=== PATIENT | male | born 1955 | race Caucasian/White ===

== ENCOUNTER 2020-07-02 08:20 | Inpatient (IN) ==
--- NOTE | 2020-06-17 12:55 | PAT Medication Instructions ---
Medication Instructions Date of Service June 17, 2020 Home Medications aspirin 325 mg PO QAM carvedilol phosphate 10 mg PO QAM cetirizine [Zyrtec] 10 mg PO QAM glimepiride 1 mg PO QAM khprhlsewbj-gzw-xtdxuxvgv-vitC [Glucosamine Complex-MSM] 1 cap PO PM insulin degludec [Tresiba FlexTouch U-100] 130 unit SUBCUT QAM liraglutide [Victoza 3-Francisco J] 1.8 mg SUBCUT QAM losartan-hydrochlorothiazide 1 tab PO QAM metformin 1,000 mg PO BID omega-3 fatty acids-vitamin E [Fish Oil] 1 cap PO PM simvastatin 10 mg PO HS tadalafil 5 mg PO DAILY PRN vitamin A-vitamin C-vit E-min [Ocuvite] 1 tab PO QAM ASK your prescriber and surgeon aspirin 325 mg PO QAM STOP taking 2 weeks before surgery (or as soon as possible if surgery is within 2 weeks) omega-3 fatty acids-vitamin E [Fish Oil] 1 cap PO PMN Ocuvite] 1 tab PO QAM drachfeufzi-kps-lnmthpzux-vitC [Glucosamine Complex-MSM] 1 cap PO PM DO NOT take the morning of surgery cetirizine [Zyrtec] 10 mg PO QAM glimepiride 1 mg PO QAM losartan-hydrochlorothiazide 1 tab PO QAM metformin 1,000 mg PO BID tadalafil 5 mg PO DAILY PRN Take morning of surgery With a small sip of water, OTHERWISE NOTHING TO EAT OR DRINK AFTER MIDNIGHT: carvedilol phosphate 10 mg PO QAM liraglutide [Victoza 3-Francisco J] 1.8 mg SUBCUT QAM Take evening before surgery metformin 1,000 mg PO BID simvastatin 10 mg PO HS tadalafil 5 mg PO DAILY PRN (if needed) Insulin Dependent Diabetic Patients * Test your blood sugar the morning of surgery * If Blood Sugar is GREATER THAN 150, take HALF of your regular dose of: insulin degludec [Tresiba FlexTouch U-100] take 65 units * If Blood Sugar is LESS THAN 150, DO NOT TAKE ANY: insulin degludec [Tresiba FlexTouch U-100] Other Notes If you have any questions please call us at [phone] or [phone] or [phone] or [phone]
--- NOTE | 2020-06-18 12:41 | Anesthesiology Consultation ---
Date of Service June 18, 2020 Assessment & Plan (1) Encounter for pre-operative examination: COVID Status: As of 06/18 assessment, patient denies travel to endemic area, known exposure/sick contacts, or symptoms of COVID19. Patient instructed that they and their household members must follow strict social distancing guidelines, wear a mask in public and avoid travel for 14 days prior to surgery. Preoperative COVID19 testing to be completed prior to surgery per surgeon's arra ngements. Patient made aware to self-isolate as much as possible between COVID testing and surgery. Significant hyperglycemia on pre-op labs (255). Patient with known DM. Labs sent to PCP for review for pre-op clearance. Chart Review Chart Review: Acceptable Risk for Surgery (pending PCP clearance 06/22) and Patient seen in Pre Admission Testing Teaching & Discussion Instructed NPO after midnight before surgery, except medications with 15 cc of water. Medication instructions provided according to the PAT guidelines. History Surgery Operation Date: 07/02/20 09:20 Proposed Procedures p L3-L4 Decompression and Fusion, L4-S1 Hardware Removal, Spinal Cord Monitoring - Sammy Joseph, Height/Weight Height: 5 ft 10 in Weight: 103.1 kg Allergies Allergy/AdvReac Type Severity Reaction Status Date / Time cephalexin Allergy Unknown HIVES Unverified 06/15/20 15:03 Medications Home Medications Medication Instructions Recorded Confirmed Last Taken aspirin 325 mg PO QAM 06/15/20 06/15/20 Unknown carvedilol phosphate 10 mg PO QAM 06/15/20 06/15/20 Unknown cetirizine [Zyrtec] 10 mg PO QAM 06/15/20 06/15/20 Unknown glimepiride 1 mg PO QAM 06/15/20 06/15/20 Unknown outkhjtwwib-rax-earjpebmd-vitC 1 cap PO PM 06/15/20 06/15/20 Unknown [Glucosamine Complex-MSM] insulin degludec [Tresiba 130 unit SUBCUT QAM 06/15/20 06/15/20 Unknown FlexTouch U-100] liraglutide [Victoza 3-Francisco J] 1.8 mg SUBCUT QAM 06/15/20 06/15/20 Unknown losartan-hydrochlorothiazide 1 tab PO QAM 06/15/20 06/15/20 Unknown metformin 1,000 mg PO BID 06/15/20 06/15/20 Unknown omega-3 fatty acids-vitamin E 1 cap PO PM 06/15/20 06/15/20 Unknown [Fish Oil] simvastatin 10 mg PO HS 06/15/20 06/15/20 Unknown tadalafil 5 mg PO DAILY PRN 06/15/20 06/15/20 Unknown vitamin A-vitamin C-vit E-min 1 tab PO QAM 06/15/20 06/15/20 Unknown [Ocuvite] Past Medical History Medical History BPH (benign prostatic hyperplasia) Chronic back pain Degenerative disc disease Diabetes mellitus, type 2 Hyperlipidemia Hypertension Sleep apnea cpap, pt reports compliance Exercise / Class Metabolic Activity II 4-5 Yardwork/Stairs/Walk up hill Past Surgical History Surgical History History of arthroscopy RIGHT SHOULDER History of arthroscopy RIGHT KNEE History of back surgery below L4 CAGE AND HARDWARE History of carpal tunnel release BILAT History of colonoscopy History of esophagogastroduodenoscopy (EGD) History of repair of ACL LEFT History of tonsillectomy History of tooth extraction Hx of elbow surgery RIGHT ULNAR NERVE Past Anesthesia History No Hx of Anesthesia Complications and No Family Hx of Anesthesia Complications History of PONV No Hx of PONV and No Hx of Motion Sickness Social History Smoking Status: Never smoker Do You Dip or Chew Tobacco: Yes (1 CAN PER 4 DAYS, ADVISED NONE AM DOS) Hx Alcohol Use: Yes Alcohol type: beer alcohol intake frequency: holidays/special occasions only Hx Substance Use: No substance use type: does not use Review of Systems Pt denies any recent chest pain, shortness of breath, palpitations, cough, fever, URI, or uncontrolled acid reflux. Physical Exam Vital Signs BP: 116/67 P: 88bpm SPO2: 96% RA T: 98.3 F R: 16 ENMT Mouth: no dental restorations, no chipped teeth and no loose teeth Thyromental Distance: > or= 3.5 Finger Breadths Mallampati Class: III Neck + short neck and + facial hair (short goatee); neck extension not limited Respiratory normal respiratory effort Auscultation: lungs clear to auscultation bilaterally Cardiovascular Rate/Rhythm: regular rate and regular rhythm Heart Sounds: no murmur Extremities: no edema Testing Laboratory Results 06/18/20 12:55 06/18/20 12:55 PT 11.8 Seconds (9.0-12.0) 06/18/20 12:55 INR 1.1 (0.9-1.1) 06/18/20 12:55 APTT 26.0 Seconds (21.0-31.0) 06/18/20 12:55 Urine Color Yellow 06/18/20 Unknown Urine Appearance Clear (Clear) 06/18/20 Unknown Urine pH 5.0 (4.5-7.5) 06/18/20 Unknown Ur Specific [place] 1.018 (1.000-1.030) 06/18/20 Unknown Urine Protein Negative (Negative) 06/18/20 Unknown Urine Glucose (UA) Trace (Negative) H 06/18/20 Unknown Urine Ketones Trace (Negative) H 06/18/20 Unknown Urine Nitrite Negative (Negative) 06/18/20 Unknown Ur Leukocyte Esterase Negative (Negative) 06/18/20 Unknown Blood Type A Negative 06/18/20 12:55 Antibody Screen NEGATIVE 06/18/20 12:55 *Surgeon's office flagged re: elevated glucose. Electrocardiogram Date: 06/18/20 Findings: + NSR @ (88bpm) and + RBBB Chest X-Ray Date: 06/18/20 Findings: + NAD
[2020-06-18 13:34] LABS: Basophils # (auto) 0.04 K/uL (0-0.2); Basophils % (auto) 0.7 %; Eosinophils # (auto) 0.33 K/uL (0-0.5); Eosinophils % (auto) 5.7 %; Hematocrit (blood only) 39.9 % (42-52); Hemoglobin 14.2 g/dL (14.0-18.0); Immature Granulocytes # (auto) 0.01 K/uL (0.00-0.02); Immature Granulocytes % (auto) 0.2 %; Lymphocytes # (auto) 1.51 K/uL (1.2-3.4); Lymphocytes % (auto) 25.9 %; Mean Corpuscular Hemoglobin 30.7 pg (25-34); Mean Corpuscular Hgb Conc 35.6 g/dL (32-36); Mean Corpuscular Volume 86.4 fL (80-100); Mean Platelet Volume 10.7 fL (7.4-10.4); Monocytes # (auto) 0.46 K/uL (0.11-0.59); Monocytes % (auto) 7.9 %; Neutrophils # (auto) 3.47 K/uL (1.4-6.5); Neutrophils % (auto) 59.6 %; Platelet Count 164 K/uL (130-400); RDW Coefficient of Variation 13.4 % (11.5-14.5); RDW Standard Deviation 42.1 fL (36.4-46.3); Red Blood Count 4.62 M/uL (4.7-6.1); White Blood Count 5.82 K/uL (4.8-10.8)
[2020-06-18 13:36] LABS: Appearance Urine Clear (Clear); Bilirubin Urine Negative (Negative); Blood Urine Negative (Negative); Color Urine Yellow; Glucose Urine UA Trace (Negative); Ketones Urine Trace (Negative); Leukocyte Esterase Urine Negative (Negative); Nitrite Urine Negative (Negative); Protein Urine Negative (Negative); Specific Gravity Urine 1.018 (1.000-1.030); Urobilinogen Urine Negative (Negative)
--- NOTE | 2020-06-18 13:41 | XRay Report ---
TWO VIEW CHEST CLINICAL HISTORY: Preoperative examination. FINDINGS: PA and lateral chest radiographs are compared to study dated 03/01/2016. The cardiomediastin al silhouette is unremarkable. The lungs and pleural spaces are clear. Bilateral nipple shadows are noted. There is no pneumothorax. The bony thorax appears intact. IMPRESSION: No active disease in the chest. ACT 112: Negative or not required by law. Electronically signed by: Javon Pineda M.D. 06/18/2020 1:39 PM
[2020-06-18 13:44] LABS: INR 1.1 (0.9-1.1); Partial Thromboplastin Ratio 0.9; Prothrombin Time 11.8 Seconds (9.0-12.0)
[2020-06-18 13:46] LABS: BUN Creatinine Ratio 23.1 (10-20); Calcium 9.4 mg/dl (8.5-10.1); Creatinine Clr Calc Pharmacy 82.8 ml/min; Est GFR (Non-African American) 72.5; Potassium 4.2 mmol/L (3.5-5.1)
--- NOTE | 2020-06-18 13:55 | Electrocardiogram Report ---
Test Reason : Blood Pressure : / mmHG Vent. Rate : 088 BPM Atrial Rate : 088 BPM P-R Int : 160 ms QRS Dur : 156 ms QT Int : 382 ms P-R-T Axes : 070 084 046 degrees QTc Int : 462 ms Normal sinus rhythm Right bundle branch block Abnormal ECG When compared with ECG of 02-JUN-2006 15:47, Right bundle branch block is now Present Confirmed by Grady Vazquez ([id number]) on 06/18/2020 1:55:05 PM Referred By: Sammy Joseph Confirmed By:Grady Vazquez
[~2020-07-02 08:20] MED LIST: ACETAMINOPHEN 500 MG TAB PO SCH; CLINDAMYCIN 600 MG/54 ML BAG IV SCH; CeleBREX 200 MG CAP PO SCH; GABAPENTIN 300 MG CAP PO SCH; LR 15ML/HR IV SCH; ceFAZolin 2000MG 2,000 MG/15 ML SYR IV SCH
--- NOTE | 2020-07-02 09:09 | History & Physical Bridge Note ---
Date of Service July 02, 2020 History & Physical Bridge Note I have examined the patient, reviewed the History & Physical and in the interval since the performance of the History & Physical I have noted the following changes of clinical significance: no changes noted
--- NOTE | 2020-07-02 09:12 | History & Physical Report ---
Date of Service July 02, 2020 Assessment & Plan (1) Lumbar stenosis with neurogenic claudication: Admission and Anticipated Discharge Date Admission Date: L3-L4 decompression fusion, L4-S1 hardware removal History of Present Illness Chief Complaint: Back and leg pain Primary Care Provider: Rj Mansfield MD This is 65-year-old male well-known to the presents with worsening back and leg pain. After failing course of nonoperative care is here for surgical intervention. Allergies Allergy/AdvReac Type Severity Reaction Status Date / Time cephalexin Allergy Unknown HIVES Unverified 07/02/20 08:56 Home Medications Home Medications Medication Instructions Recorded Confirmed Type aspirin 325 mg PO QAM 06/15/20 06/15/20 History carvedilol phosphate 10 mg PO QAM 06/15/20 06/15/20 History cetirizine [Zyrtec] 10 mg PO QAM 06/15/20 06/15/20 History glimepiride 1 mg PO QAM 06/15/20 06/15/20 History ptiwjjjrnlm-xqd-qdtkyqnyi-vitC 1 cap PO PM 06/15/20 06/15/20 History [Glucosamine Complex-MSM] insulin degludec [Tresiba 130 unit SUBCUT QAM 06/15/20 06/15/20 History FlexTouch U-100] liraglutide [Victoza 3-Francisco J] 1.8 mg SUBCUT QAM 06/15/20 06/15/20 History losartan-hydrochlorothiazide 1 tab PO QAM 06/15/20 06/15/20 History metformin 1,000 mg PO BID 06/15/20 06/15/20 History omega-3 fatty acids-vitamin E 1 cap PO PM 06/15/20 06/15/20 History [Fish Oil] simvastatin 10 mg PO HS 06/15/20 06/15/20 History tadalafil 5 mg PO DAILY PRN 06/15/20 06/15/20 History vitamin A-vitamin C-vit E-min 1 tab PO QAM 06/15/20 06/15/20 History [Ocuvite] Past Med/Surg History Medical History BPH (benign prostatic hyperplasia) Chronic back pain Degenerative disc disease Diabetes mellitus, type 2 Hyperlipidemia Hypertension Sleep apnea cpap, pt reports compliance Surgical History History of arthroscopy RIGHT SHOULDER History of arthroscopy RIGHT KNEE History of back surgery below L4 CAGE AND HARDWARE History of carpal tunnel release BILAT History of colonoscopy History of esophagogastroduodenoscopy (EGD) History of repair of ACL LEFT History of tonsillectomy History of tooth extraction Hx of elbow surgery RIGHT ULNAR NERVE Social History Smoking Status: Never smoker Second Hand Exposure: No; Do You Dip or Chew Tobacco: Yes (1 CAN PER 4 DAYS, ADVISED NONE AM DOS); Tobacco Cessation Education Requested by Patient: No Hx Alcohol Use: Yes Alcohol type: beer Hx Substance Use: No Preferred Language: Ecuadorean Communication Ability: Effective Precision Dyer Required: No Beliefs That Will Affect Care: None Current Living Situation: Spouse Other Information That Helps Us Care for You: No Feels Safe at Home: Yes Safety Concerns: Feels Safe At This Time Physical Exam Physical Exam: Patient alert and oriented neurologically intact. Heart regular rate and rhythm. Lungs clear to auscultation.
[2020-07-02] MEDS ORDERED: ONDANSETRON INJ 2 MG/ML 2 ML VIAL IV PRN ×2 (09:17→13:12)
[2020-07-02] MEDS ORDERED: ePHEDrine sulfate 50 MG/ML AMP IV PRN (09:17)
[2020-07-02] MEDS ORDERED: CLINDAMYCIN 600 MG/54 ML D5W IV ONE (09:17)
[2020-07-02] MEDS ORDERED: fentaNYL citrate 100 MCG/2 ML VIAL IV PRN (09:17)
[2020-07-02] MEDS ORDERED: ATROPINE SULFATE 0.1 MG/ML 10ML SYR IV PRN (09:17)
[2020-07-02] MEDS ORDERED: HYDROmorphone INJ 1 MG/ML SYRINGE IV PRN ×2 (09:17→13:12)
[2020-07-02] MEDS ORDERED: ONDANSETRON INJ 2 MG/ML 2 ML VIAL ONE (09:22)
[2020-07-02] MEDS ORDERED: LIDOCAINE HCL 2% 2 ML VIAL/AMP(20MG/ML) INFIL ONE (09:22)
[2020-07-02] MEDS ORDERED: MIDAZOLAM HCL 1 MG/ML 2ML VIAL ONE (09:22)
[2020-07-02] MEDS ORDERED: ROCURONIUM BROMIDE 10 MG/ML 5 ML VIAL IV ONE (09:22)
[2020-07-02] MEDS ORDERED: PROPOFOL IV EMULSION 10 MG/ML 20 ML VIAL IV ONE (09:22)
[2020-07-02] MEDS ORDERED: fentaNYL citrate 100 MCG/2 ML VIAL ONE ×2 (09:22→09:23)
[2020-07-02] MEDS ORDERED: BACITRACIN INJ 50,000 UNIT VIAL ONE (09:23)
[2020-07-02] MEDS ORDERED: EPINEPHrine INJ 1 MG/ML AMP ONE (09:23)
[2020-07-02] MEDS ORDERED: BUPIVACAINE 0.5 % 5 MG/1 ML MPF 30ML VIAL ONE (09:23)
[2020-07-02] MEDS ORDERED: FLOSEAL HEMOSTATIC MATRIX 10ML TOP ONE (10:24)
--- NOTE | 2020-07-02 11:47 | Operative Report ---
Post Operative Report Pre & Post Diagnosis Operation Date: 07/02/20 09:55 Pre-Op Diagnosis: Spinal Stenosis, Lumbar Region with Neurogenic Claudication Post-Op Diagnosis: Spinal Stenosis, Lumbar Region with Neurogenic Claudication I identified the patient and participated in the time-out.: Yes Procedure Operation Date: 07/02/20 09:55 Actual Procedures #1 removal of posterior instrumentation L4-5 and L5-S1. #2 exploration of fusion L4-5 L5-S1. #3 lumbar decompression with bilateral medial facetectomies and foraminotomies L2-3 and L3-4. #4 posterior spinal fusion L3-4. #5 placement posterior instrumentation L3-4 per #6 interbody fusion L3-4 per #7 placement of peek cage 12 x 26 mm at L3-4. #8 placement of locally harvested morselized autograft in the posterior lateral gutters. #9 placement infuse collagen sponge, master graft in the posterior lateral gutters and ostial amp interbody space. Surgeon Sammy Joseph, Thoracic Medicine Physician Yolanda Doe Estimated Blood Loss 250 Findings See Below Patient is 5 foot 10 inches tall weighing over 102 kg with a BMI in excess of 32. The patient's body habitus did add increased significant technical difficulty requiring her deepest retractors longus instruments in order to perform his procedure. This did at least 25% increase to the operative time. Specimens None Indications This is a 65-year-old male well-known to me the presents with marked decline in status. He has severe spinal stenosis and here for surgical intervention. Description of Procedure Patient was met with identified informed consent obtained. Patient was then taken to the operative suite underwent intubation placed in a prone position on the Luis Antonio table on top of the Graham frame. All bony prominences well-padded eyes inspected to ensure no external pressure placed upon them. This point the lumbar spine was prepped and draped in a normal sterile fashion. Sharp dissection with the assistance of Bovie cautery was performed down to and exposing the lamina and transverse processes of L3 and instrumentation at L4-L5 and S1 levels bilaterally. Then proceeded to move the hardware bilaterally explore the fusion mass noting to be mature and intact. Informed complete laminectomy of L3 partial laminectomy of L2 including bilateral medial facetectomies and foraminotomies addressing severe spinal stenosis. Pedicle screws were then placed in L3 and L4 bilaterally with assistance of fluoroscopy and the proper sized mirna placed. Believe a transforaminal approach on the right complete discectomy was performed endplates curetted to subcortical bleeding bone and a 12 x 26 mm peek cage filled with osteo-bone graft tapped in position. The rods were then locked in final position bilaterally. The transverse processes of L3 and L4. To subcortical bleeding bone. Infuse collagen sponge master graft local autograft was then placed in the posterior lateral gutters. 15 round CARMINE drain inserted. The incision was then closed with 1 Vicryl in the fascia 2-0 Vicryl subcutaneously and 4 Monocryl for final skin closure. Steri- Strip sterile dressings placed. Patient will continue PACU stable condition. Please note spinal cord monitoring was last that the procedure no changes noted. Lastly Yolanda Doe was present at the entire surgery involved the patient positioning complex portions of the surgery and final skin closure. I attest to the content of the Intraoperative Record and any orders documented therein. Any exceptions are noted below.
--- NOTE | 2020-07-02 12:01 | Fluoroscopy Report ---
FL lumbar spine 2-3V CLINICAL HISTORY: L4-S1 REMOVE HARDWARE/L3-4 DECOMPRESSION/FUSION/INTERBODY COMPARISON STUDY: Lumbar spine radiographs March 2016. FLUOROSCOPY TIME: 9 seconds. FLUOROSCOPIC IMAGES: 2 FINDINGS: These images demonstrate a previous L4-L5 discectomy with interbody spacer placement. Previ ous hardware was removed. Interval L3-L4 discectomy with interbody spacer placement as noted. There a re bilateral pedicle screws at the L3 and L4 levels with posterior decompression. IMPRESSION: Fluoroscopy provided for interval L3-L4 discectomy, posterior decompression and bilatera l pedicle screw fusion. ACT 112: Negative or not required by law. Electronically signed by: Antonino Kirk M.D. 07/02/2020 12:00 PM
[2020-07-02] MEDS ORDERED: FAMOTIDINE 20 MG TAB PO PRN (13:12)
[2020-07-02] MEDS ORDERED: LORazepam 0.5 MG/1 ML VIAL IV PRN (13:12)
[2020-07-02] MEDS ORDERED: HYDROmorphone INJ 0.5 MG/0.5 ML SYR IV PRN (13:12)
[2020-07-02] MEDS ORDERED: DO NOT ADMINISTER PNEUMOCOCCAL VACCINE PRN (13:12)
[2020-07-02] MEDS ORDERED: ONDANSETRON 4 MG OD TAB PO PRN (13:12)
[2020-07-02] MEDS ORDERED: NALOXONE HCL 0.4 MG/1 ML VIAL/CARP IV PRN (13:12)
[2020-07-02] MEDS ORDERED: ACETAMINOPHEN 500 MG TAB PO PRN (13:12)
[2020-07-02] MEDS ORDERED: METOCLOPRAMIDE HCL INJ 5 MG/ML 2 ML VIAL IV PRN (13:12)
[2020-07-02] MEDS ORDERED: SOD PHOSPHATE/SOD BIPHOSPHATE ENEMA 132 ML BTL PR PRN (13:12)
[2020-07-02] MEDS ORDERED: DO NOT ADMINISTER FLU VACCINE PRN (13:12)
[2020-07-02] MEDS ORDERED: diphenhydrAMINE Capsule 25 MG CAP PO PRN (13:12)
[2020-07-02] MEDS ORDERED: ACETAMINOPHEN 1,000 MG/100 ML VIAL IV PRN (13:12)
[2020-07-02] MEDS ORDERED: bisacodyL 10 MG SUPP PR PRN (13:12)
[2020-07-02] MEDS ORDERED: hydrOXYzine HCl 25 MG TAB PO PRN (13:12)
[2020-07-02] MEDS ORDERED: oxyCODONE HCL IR 5 MG TAB (IMMEDIATE RELEASE) PO PRN (13:12)
[2020-07-02] MEDS ORDERED: PROMETHAZINE HCL 12.5 MG in SODIUM CHLORIDE 0.9% 50 ML IV PRN (13:12)
[2020-07-02] MEDS ORDERED: ALUMINUM/MAGNESIUM SUSP 30 ML UDC PO PRN (13:12)
[2020-07-02] MEDS ORDERED: MAGNESIUM HYDROXIDE SUSP 30 ML UDC PO PRN (13:12)
[2020-07-02] MEDS ORDERED: LORazepam 0.5 MG TAB PO PRN (13:12)
[2020-07-02] MEDS: SODIUM CHLORIDE 0.9% 1000ML 1,000 ML IV SCH ×2 (13:18→20:36)
[2020-07-02] MEDS ORDERED: PHARMACY GLYCEMIC MGMT CONSULT PRN (13:29)
[2020-07-02] MEDS ORDERED: GLUCOSE 10 TABS/TUBE PO PRN (13:30)
[2020-07-02] MEDS ORDERED: GLUCAGON FOR INJ 1 MG VIAL IM PRN (13:30)
[2020-07-02] MEDS ORDERED: GLUCOSE 40% GEL 15 GM TUBE PO PRN (13:30)
[2020-07-02] MEDS ORDERED: CARBOHYDRATES FOR HYPOGLYCEMIA PO PRN (13:30)
[2020-07-02] MEDS ORDERED: DEXTROSE 50% 50 ML SYRINGE IV PRN (13:30)
[2020-07-02] MEDS: INSULIN ASPART 100 UNITS/ML 3 ML PEN SC SCH ×3 (14:20→20:36)
--- NOTE | 2020-07-02 14:40 | Pharmacy Report ---
Glycemic Control Consultation - Date of Service July 02, 2020 - Scope Scope: Glycemic Pharmacist consulted for glycemic control and to write orders per [facility] inpatient glycemic control protocol. - Objective Weight: 102.193 kg Accuchecks BSG (last 24hrs): 07/02/20 07/02/20 07/02/20 08:59 12:14 13:19 POC Glucose 167 H 147 H 150 H - Recent Pertinent Medications Outpatient Anti-diabetic Regimen: * Tresiba 130 units SC qAM + Victoza 1.8 mg SC qAM + Metformin 1000 mg PO BIDM + Glimepiride 1 mg PO qAM * A1c = pending for tomorrow AM (patient self-reported last A1c < 7%) Risk Factors for Insulin Resistance: * Recent Surgery: * POD #0 s/p spinal decompression/fusion * Diet: * Clear Liquid - Assessment & Plan Assessment & Plan: ASSESSMENT: * 65 yo M admitted s/p spinal decompression/fusion. Pharmacy is consulted for inpatient glycemic management. Patient self reported good outpatient control of T2DM. Updated A1c is pending for tomorrow with AM labs. * Pre-operative BSG was elevated at 167 mg/dL. Post-operative BSG was 150 mg/dL. Patient was going to eat post-operatively. Will start Novolog based on a weight and stress of 2. * Prior to admission, patient took Victoza dose and half of home basal dose (65 units) this morning. Will provide another small dose of Lantus with dinner tonight to ensure patient receives 70-80% of home basal dose. Plan is to transition this basal dose to lunchtime tomorrow and then resume once daily basal regimen qAM on Monday. PLAN FOR INPATIENT GLYCEMIC CONTROL: * Holding outpatient oral diabetes medications * Basal insulin * Lantus 25-35 units SQ HS (see eMAR for further details) * Bolus insulin * NovoLog per scale ACHS or Q6hrs while NPO * Goal Range: Low 110 mg/dL - High 140 mg/dL * Correction Factor: 15 mg/dL/unit * Nutritional / Prandial insulin per carb ratio of 1 unit per 5 grams CHO co nsumed * Please note that the plan above was derived based on current level of insulin resistance and hospital stress. These recommendations are appropriate for inpatient admission only. Plan of care upon discharge will need to be reassessed to avoid potential outpatient hypo/hyperglycemia. Thank you.
--- NOTE | 2020-07-02 14:43 | Anesthesiology Progress Note ---
Date of Service July 02, 2020 Anesthesia Post Procedure Vital Signs Vital Signs: Temp Pulse Pulse Resp BP BP Pulse Ox 07/02/20 14:05 36.5 C 76 17 144/83 H 97 07/02/20 13:35 36.4 C L 70 17 150/84 H 98 07/02/20 12:50 36.7 C 74 16 132/79 97 07/02/20 12:40 83 17 139/84 98 07/02/20 12:30 81 18 144/77 H 97 07/02/20 12:20 76 14 151/68 H 98 07/02/20 12:10 36.7 C 82 16 153/80 H 98 07/02/20 09:20 36.9 C 78 16 165/88 H 98 Transfer of Care Handoff Completed per policy Notes Mental Status: alert / awake / arousable and participated in evaluation Patient Amnestic to Procedure: Yes Nausea / Vomiting: adequately controlled Pain: adequately controlled Airway Patency, RR, SpO2: stable & adequate BP & HR: stable & adequate Hydration State: stable & adequate Anesthetic Complications: no major complications apparent and Pt Satisfied with anesthetic care
--- NOTE | 2020-07-02 15:55 | Consultation ---
Date of Consultation July 02, 2020 Assessment & Plan (1) Status post lumbar surgery: Post op day# 0 S/P hardware removal L4-S1, decompression L2-L4, fusion L3- L4 by Dr Joseph EBL#[id number] Post op doing well -pain management per ortho -wound management per ortho -PT/OT as appropriate -DVT prophylaxis per ortho -incentive spirometry -monitor H&H for acute blood loss anemia; Pre-op Hgb: 14 (2) Diabetes mellitus, type 2: A1c: 6.7 on 03/2020 per outpatient PCP note Insulin dependent -Hold home meds -Basal bolus insulin, Glycemic pharmacist on board, appreciate glycemic management (3) Hypertension: -Continue carvedilol, losartan -Hold HCTZ (4) Hyperlipidemia: -Continue simvastatin (5) Sleep apnea: -CPAP HS (6) BPH (benign prostatic hyperplasia): -Pt was recently prescribed tamsulosin, however has not started yet DVT Prophylaxis -SCDs per ortho Disposition per primary service Follows with Dr Rj Mansfield for routine care Pt was seen and care coordinated with Dr Fermin. See addendum Thank you for this consultation. We will follow the patient with you during their hospital stay. You can reach a [facility] via pager @ [phone]. Supervising Physician Co-Signing Physician Notes Pt was seen and examined. Agreed with Aida THOMPSON exam, assessment and plan. 65 y/o M with PMH DM II, HTN, HLD, ARINA on CPAP, BPH s/p L2-L4 decompression and L3- L4 fusion performed today by Dr. Joseph. Currently pain control. No postop complication. Continue pain management as per ortho. PT/OT eval. Monitor H/H. Pharmacy on board for glycemic management. Continue monitor BS. Incentive spirometry. Fall precaution. MD Jeny History of Present Illness Requesting Physician: Dr Joseph Reason for Consultation: Postop medical management Attending Physician: Sammy Joseph DO History of Present Illness Pt is 65 y/o M with PMH DM II, HTN, HLD, ARINA on CPAP, BPH seen in medical consultation s/p L2-L4 decompression, L3-L4 fusion today by Dr. Joseph. Postop patient reports doing well and pain control. Denies any lower extremity pain or paresthesias. Has Jones cath in place. Reports last BM yesterday. Denies any nausea, vomiting, shortness of breath, chest pain, dizziness. Denies fever/chills, WEINER, vision changes, neck pain, palpitations, cough, sore throat, choking, rhinorrhea, abdominal pain, extremity edema, rashes. Allergies Allergy/AdvReac Type Severity Reaction Status Date / Time cephalexin Allergy Unknown HIVES Unverified 07/02/20 08:56 Home Medications Home Medications Medication Instructions Recorded Confirmed Type aspirin 325 mg PO QAM 06/15/20 07/02/20 History carvedilol phosphate 10 mg PO QAM 06/15/20 07/02/20 History cetirizine [Zyrtec] 10 mg PO QAM 06/15/20 07/02/20 History glimepiride 1 mg PO QAM 06/15/20 07/02/20 History gnhdulxyect-yqp-dpoceprkn-vitC 1 cap PO PM 06/15/20 07/02/20 History [Glucosamine Complex-MSM] insulin degludec [Tresiba 130 unit SUBCUT QAM 06/15/20 07/02/20 History FlexTouch U-100] liraglutide [Victoza 3-Francisco J] 1.8 mg SUBCUT QAM 06/15/20 07/02/20 History losartan-hydrochlorothiazide 1 tab PO QAM 06/15/20 07/02/20 History metformin 1,000 mg PO BID 06/15/20 07/02/20 History omega-3 fatty acids-vitamin E 1 cap PO PM 06/15/20 07/02/20 History [Fish Oil] simvastatin 10 mg PO HS 06/15/20 07/02/20 History tadalafil 5 mg PO DAILY PRN 06/15/20 07/02/20 History vitamin A-vitamin C-vit E-min 1 tab PO QAM 06/15/20 07/02/20 History [Ocuvite] Patient History Medical History (Updated 07/02/20 @ 16:01 by Aida Godinez PA-C) BPH (benign prostatic hyperplasia) Chronic back pain Degenerative disc disease Diabetes mellitus, type 2 Hyperlipidemia Hypertension Sleep apnea cpap, pt reports compliance Surgical History (Updated 07/02/20 @ 16:01 by Aida Godinez PA-C) History of arthroscopy RIGHT SHOULDER History of arthroscopy RIGHT KNEE History of back surgery below L4 CAGE AND HARDWARE History of carpal tunnel release BILAT History of colonoscopy History of esophagogastroduodenoscopy (EGD) History of repair of ACL LEFT History of tonsillectomy History of tooth extraction Hx of elbow surgery RIGHT ULNAR NERVE Family History Other Coronary heart disease Hypertension Social History Smoking Status: Never smoker Second Hand Exposure: No; Do You Dip or Chew Tobacco: Yes (1 CAN PER 4 DAYS, ADVISED NONE AM DOS); Tobacco Cessation Education Requested by Patient: No Hx Alcohol Use: Yes Alcohol type: beer Hx Substance Use: No Preferred Language: Spanish Communication Ability: Effective Forepart Rounder Required: No Beliefs That Will Affect Care: None marital status: Current Living Situation: Spouse Other Information That Helps Us Care for You: No Feels Safe at Home: Yes Safety Concerns: Feels Safe At This Time Review of Systems Review of Systems: All systems reviewed & are unremarkable except as noted in HPI & below Physical Exam Physical Exam: General: no distress, obese Head: normocephalic, atraumatic Eyes: conjunctiva non-injected, anicteric ENT: normal inspection external ears, nose, mucous membranes moist Neck: supple, trachea midline Lungs: clear, no respiratory distress, no wheezing/rhonchi/rales CV: RRR, no murmur, no pretibial edema Abd: normal BS, soft, non-tender Back: surgical dressing in place, CARMINE drain with serosanguineous drainage Ext: no cyanosis, no calf tenderness Neuro: A&O x 3, no focal deficits noted, normal affect Skin: warm, dry Results & Data ([facility]) Vital Signs (Past 12 Hours) Vital Signs Temp Pulse Pulse Resp BP BP Pulse Ox 07/02/20 14:05 36.5 C 76 17 144/83 H 97 07/02/20 13:35 36.4 C L 70 17 150/84 H 98 07/02/20 12:50 36.7 C 74 16 132/79 97 07/02/20 12:40 83 17 139/84 98 07/02/20 12:30 81 18 144/77 H 97 07/02/20 12:20 76 14 151/68 H 98 07/02/20 12:10 36.7 C 82 16 153/80 H 98 07/02/20 09:20 36.9 C 78 16 165/88 H 98
[2020-07-02] MEDS ORDERED: INSULIN GLARGINE SOLOSTAR 100 UNITS/ML 3 ML PEN SC SCH (16:30)
[2020-07-02] MEDS: CLINDAMYCIN 600 MG in DEXTROSE 5% 50 ML IV SCH (17:42)
[2020-07-02] MEDS: traMADol HCL 50 MG TABLET PO PRN (20:35)
[2020-07-02] MEDS: DOCUSATE SODIUM/SENNA 50/8.6MG TAB PO SCH (20:37)
[2020-07-02] MEDS: SIMVASTATIN 10 MG TAB PO SCH (20:38)
[2020-07-03] MEDS: CLINDAMYCIN 600 MG in DEXTROSE 5% 50 ML IV SCH (02:58)
[2020-07-03] MEDS: traMADol HCL 50 MG TABLET PO PRN ×3 (03:00→18:29)
[2020-07-03] MEDS: SODIUM CHLORIDE 0.9% 1000ML 1,000 ML IV SCH (03:37)
[2020-07-03] MEDS: POLYETHYLENE (MIRALAX) 17 GM PACK PO SCH ×4 (05:17→23:36)
[2020-07-03 05:49] LABS: Basophils # (auto) 0.01 K/uL (0-0.2); Basophils % (auto) 0.1 %; Eosinophils # (auto) 0.23 K/uL (0-0.5); Eosinophils % (auto) 3.1 %; Hematocrit (blood only) 32.3 % (42-52); Hemoglobin 11.3 g/dL (14.0-18.0); Immature Granulocytes # (auto) 0.02 K/uL (0.00-0.02); Immature Granulocytes % (auto) 0.3 %; Lymphocytes # (auto) 0.93 K/uL (1.2-3.4); Lymphocytes % (auto) 12.4 %; Mean Corpuscular Hemoglobin 30.3 pg (25-34); Mean Corpuscular Volume 86.6 fL (80-100); Mean Platelet Volume 10.1 fL (7.4-10.4); Monocytes # (auto) 0.79 K/uL (0.11-0.59); Monocytes % (auto) 10.5 %; Neutrophils # (auto) 5.53 K/uL (1.4-6.5); Neutrophils % (auto) 73.6 %; Platelet Count 122 K/uL (130-400); RDW Coefficient of Variation 13.5 % (11.5-14.5); RDW Standard Deviation 42.8 fL (36.4-46.3); Red Blood Count 3.73 M/uL (4.7-6.1); White Blood Count 7.51 K/uL (4.8-10.8)
[2020-07-03 06:20] LABS: BUN Creatinine Ratio 20.7 (10-20); Calcium 8.4 mg/dl (8.5-10.1); Creatinine Clr Calc Pharmacy 111.7 ml/min; Est GFR (African American) 109.2; Est GFR (Non-African American) 94.2; Potassium 3.8 mmol/L (3.5-5.1)
[2020-07-03 06:57] LABS: Estimated Average Glucose 154 mg/dl
[2020-07-03] MEDS: LOSARTAN POTASSIUM 50 MG TAB PO SCH (08:37)
[2020-07-03] MEDS: CARVEDILOL PO SCH (08:38)
[2020-07-03] MEDS: MULTIVITAMIN TAB PO SCH (08:38)
[2020-07-03] MEDS: CETIRIZINE HCL 10 MG TABLET PO SCH (08:38)
[2020-07-03] MEDS: ASPIRIN 325 MG ECTAB PO SCH (08:38)
[2020-07-03] MEDS: INSULIN ASPART 100 UNITS/ML 3 ML PEN SC SCH ×4 (08:41→21:27)
[2020-07-03] MEDS ORDERED: NON-FORMULARY MEDICATION (Losartan-Hydrochlorothiazide 1 TAB) PO SCH (09:00)
[2020-07-03] MEDS ORDERED: CARVEDILOL PHOSPHATE 10 MG PO SCH (09:00)
[2020-07-03] MEDS ORDERED: INSULIN GLARGINE SOLOSTAR 100 UNITS/ML 3 ML PEN SC SCH (09:00)
[2020-07-03] MEDS ORDERED: NON-FORMULARY MEDICATION (Liraglutide [Victoza 3-Pak] 1.8 MG) SQ SCH (09:00)
[2020-07-03] MEDS ORDERED: hydroCHLOROthiazide 25 MG TAB PO SCH (09:00)
[2020-07-03] MEDS ORDERED: GLIMEPIRIDE 2 MG TAB PO SCH (09:00)
--- NOTE | 2020-07-03 10:04 | Pharmacy Report ---
Pharmacy Glycemic Short Note 2 - Date of Service July 03, 2020 - Glycemic Short BSG Results (Last 24 hours): OUTPATIENT ANTIDIABETIC REGIMEN: * Tresiba 130 units SC qAM + Victoza 1.8 mg SC qAM + Metformin 1000 mg PO BIDM + Glimepiride 1 mg PO qAM * A1c = 7.0% (07/03/2020) ASSESSMENT: 07/03: * BSGs uncontrolled yesterday: 191-661-171-166 mg/dL * Received 120 units of insulin yesterday: 100 units basal + 20 units bolus * Gave patient 35 units of insulin with dinner yesterday to get 100 units total (~20% reduction in home dose) * Fasting BSG this AM was 85 mg/dL - controlled * Will reduce basal dose by 10% today * Attempting to get back to once daily basal dose to mimic patient's home regimen. Therefore, will give another dose of basal insulin with lunch today. This should allow for transition to qAM basal tomorrow. * Lunchtime BSG was 176 mg/dL * Will give additional basal with lunch so no adjustments to novolog at this time 07/02: * 65 yo M admitted s/p spinal decompression/fusion. Pharmacy is consulted for inpatient glycemic management. Patient self reported good outpatient control of T2DM. Updated A1c is pending for tomorrow with AM labs. * Pre-operative BSG was elevated at 167 mg/dL. Post-operative BSG was 150 mg/dL. Patient was going to eat post-operatively. Will start Novolog based on a weight and stress of 2. * Prior to admission, patient took Victoza dose and half of home basal dose (65 units) this morning. Will provide another small dose of Lantus with dinner tonight to ensure patient receives 70-80% of home basal dose. Plan is to transition this basal dose to lunchtime tomorrow and then resume once daily basal regimen qAM on Monday. PLAN FOR INPATIENT GLYCEMIC CONTROL: * Hold outpatient oral diabetes medications * Basal insulin - decreased by ~10% * Lantus 65 units SQ qAM * Lantus 30 units SQ x 1 at lunch * Bolus insulin - no change * NovoLog per scale ACHS or Q6hrs while NPO * Goal Range: Low 110 mg/dL - High 140 mg/dL * Correction Factor: 15 mg/dL/unit * Nutritional / Prandial insulin per carb ratio of 1 unit per 5 grams CHO consumed PLAN FOR DISCHARGE: * A1c = 7.0% - appropriate for this patient based on age and comorbidities * Recommend continuing outpatient anti-diabetic regimen and close follow-up with PCP
--- NOTE | 2020-07-03 11:36 | Orthopedic Progress Note ---
Date of Service July 03, 2020 Assessment & Plan (1) Lumbar stenosis with neurogenic claudication: Admission and Anticipated Discharge Date Admission Date: At this time we will continue physical therapy monitor his CARMINE output anticipate discharge home later after this weekend. July 02, 2020 Subjective Back pain controlled leg symptoms markedly improved. Physical Exam Physical Exam: Patient is comfortable. Is eccentric to testing Results & Data ([facility]) Vital Signs (Past 12 Hours) Vital Signs Temp Pulse Pulse Resp BP Pulse Ox 07/03/20 08:35 76 127/77 07/03/20 07:36 36.7 C 73 16 142/76 H 97 07/03/20 03:04 36.5 C 71 16 132/74 96 07/02/20 23:45 36.4 C L 73 18 124/73 95
[2020-07-03] MEDS ORDERED: INSULIN GLARGINE SOLOSTAR 100 UNITS/ML 3 ML PEN SC ONE (12:30)
--- NOTE | 2020-07-03 19:14 | Hospitalist Progress Note ---
Date of Service July 03, 2020 Assessment & Plan (1) Status post lumbar surgery: Lumbar stenosis with neurogenic claudication S/P S/P hardware removal L4-S1, decompression L2-L4, fusion L3-L4 by Dr Joseph POD #1 Acute blood loss anemia--Post OP Pain control, wound care, DVT prophylaxis as per orthopedics Appreciate orthopedics input PT OT Continue bowel regimen to prevent constipation Continue incentive spirometry Monitor CBC (2) Diabetes mellitus, type 2: A1c: 6.7 on 03/2020 per outpatient PCP note Insulin dependent Hold home meds Continue Insulin therapy Glycemic pharmacist consulted (3) Hypertension: Continue carvedilol, losartan Hold HCTZ for now (4) Hyperlipidemia: Continue simvastatin (5) Sleep apnea: CPAP HS (6) BPH (benign prostatic hyperplasia): Recently prescribed tamsulosin Plan to start it as advised DVT Px: As per Ortho Code Status Full Code Admission and Anticipated Discharge Date Admission Date: July 02, 2020 Subjective Patient is seen and examined at bedside States feeling well today Back pain at surgical site is controlled + flatus, no BM Denies chest pain, shortness of breath, dizziness, nausea, abdominal pain Offers no other complaints Review of Systems Review of Systems: All systems reviewed & are unremarkable except as noted in HPI & below Physical Exam Physical Exam: Physical Exam: Vitals signs as noted above General Appearance:Moderately built and nourished, no apparent distress Head: normocephalic, Atraumatic Eyes: normal inspection, EOMI Neck: supple, Trachea midline Respiratory/Chest: Normal breath sounds, CTA Cardiovascular: S1, S2, No murmur Abdomen/GI:Soft, Non tender, Bowel sounds present Back: Surgical site in dressing Extremities/Musculoskelatal:normal inspection, no edema Neurologic/Psych:AAOX3, grossly no focal neurological deficits Skin: normal color, warm Results & Data Results & Data ([facility]) Vital Signs (Past 12 Hours) Vital Signs Temp Pulse Pulse Resp BP Pulse Ox 07/03/20 16:31 36.8 C 76 17 135/78 98 07/03/20 12:00 37.0 C 79 18 123/73 96 07/03/20 08:35 76 127/77 07/03/20 07:36 36.7 C 73 16 142/76 H 97 Laboratory Results Short CBC 07/03/20 Range/Units 05:10 WBC 7.51 (4.8-10.8) K/uL Hgb 11.3 L (14.0-18.0) g/dL Hct 32.3 L (42-52) % Plt Count 122 L (130-400) K/uL [facility] 07/03/20 05:10 Sodium 142 Potassium 3.8 Chloride 107 Carbon Dioxide 29 BUN 16 Creatinine 0.79 Glucose 74 Calcium 8.4 L
[2020-07-03] MEDS: DOCUSATE SODIUM/SENNA 50/8.6MG TAB PO SCH (21:26)
[2020-07-03] MEDS: SIMVASTATIN 10 MG TAB PO SCH (21:26)
[2020-07-04] MEDS: POLYETHYLENE (MIRALAX) 17 GM PACK PO SCH ×3 (05:12→17:09)
[2020-07-04] MEDS: traMADol HCL 50 MG TABLET PO PRN ×2 (05:16→20:14)
[2020-07-04 06:24] LABS: Hematocrit (blood only) 35.9 % (42-52); Hemoglobin 12.7 g/dL (14.0-18.0); Mean Corpuscular Hemoglobin 30.8 pg (25-34); Mean Corpuscular Hgb Conc 35.4 g/dL (32-36); Mean Corpuscular Volume 86.9 fL (80-100); Mean Platelet Volume 10.2 fL (7.4-10.4); Platelet Count 158 K/uL (130-400); RDW Coefficient of Variation 13.7 % (11.5-14.5); RDW Standard Deviation 43.4 fL (36.4-46.3); Red Blood Count 4.13 M/uL (4.7-6.1); White Blood Count 7.34 K/uL (4.8-10.8)
[2020-07-04 06:58] LABS: BUN Creatinine Ratio 16.7 (10-20); Calcium 9.1 mg/dl (8.5-10.1); Creatinine Clr Calc Pharmacy 100.2 ml/min; Est GFR (African American) 104.5; Est GFR (Non-African American) 90.1; Potassium 3.7 mmol/L (3.5-5.1)
[2020-07-04] MEDS: INSULIN ASPART 100 UNITS/ML 3 ML PEN SC SCH ×4 (07:57→21:17)
[2020-07-04] MEDS: LOSARTAN POTASSIUM 50 MG TAB PO SCH (08:01)
[2020-07-04] MEDS: ASPIRIN 325 MG ECTAB PO SCH (08:01)
[2020-07-04] MEDS: CETIRIZINE HCL 10 MG TABLET PO SCH (08:02)
[2020-07-04] MEDS: CARVEDILOL PO SCH (08:02)
[2020-07-04] MEDS: DEXAMETHASONE SOD PHOSPHATE 8 MG in SYRINGE 0 ML IV SCH (08:03)
[2020-07-04] MEDS: MULTIVITAMIN TAB PO SCH (08:03)
[2020-07-04] MEDS ORDERED: INSULIN GLARGINE SOLOSTAR 100 UNITS/ML 3 ML PEN SC SCH ×2 (09:00→21:00)
--- NOTE | 2020-07-04 10:11 | Orthopedic Progress Note ---
Date of Service July 04, 2020 Assessment & Plan (1) Lumbar stenosis with neurogenic claudication: Admission and Anticipated Discharge Date Admission Date: July 02, 2020 This time continue physical therapy monitor his CARMINE output anticipate discharge home tomorrow. Subjective Patient's pain is controlled is ambulating well. No leg pain. Physical Exam Physical Exam: On exam he is ambulating halls. Good strength testing. Results & Data ([facility]) Vital Signs (Past 12 Hours) Vital Signs Temp Pulse Pulse Resp BP BP Pulse Ox 07/04/20 06:52 36.6 C 83 16 136/86 96 07/03/20 23:45 36.9 C 81 16 147/78 H 97
--- NOTE | 2020-07-04 16:27 | Hospitalist Progress Note ---
Date of Service July 04, 2020 Assessment & Plan (1) Status post lumbar surgery: Lumbar stenosis with neurogenic claudication S/P S/P hardware removal L4-S1, decompression L2-L4, fusion L3-L4 by Dr Joseph POD #2 Acute blood loss anemia--Post OP Pain control, wound care, DVT prophylaxis as per orthopedics Appreciate orthopedics input PT OT Continue bowel regimen to prevent constipation Continue incentive spirometry Hb stable (2) Diabetes mellitus, type 2: A1c: 6.7 on 03/2020 per outpatient PCP note Insulin dependent Hold home meds Continue Insulin therapy Glycemic pharmacist consulted (3) Hypertension: Continue carvedilol, losartan Resume HCTZ (4) Hyperlipidemia: Continue simvastatin (5) Sleep apnea: CPAP HS (6) BPH (benign prostatic hyperplasia): Recently prescribed tamsulosin Plan to start it as advised DVT Px: As per Ortho Code Status Full Code Admission and Anticipated Discharge Date Admission Date: July 02, 2020 Subjective Patient is seen and examined at bedside Doing well today No new complaints No significant back pain Denies chest pain, SOB, dizziness, nausea, abdominal pain Offers no other complaints Review of Systems Review of Systems: All systems reviewed & are unremarkable except as noted in HPI & below Physical Exam Physical Exam: Physical Exam: Vitals signs as noted above General Appearance:Moderately built and nourished, no apparent distress Head: normocephalic, Atraumatic Eyes: normal inspection, EOMI Neck: supple, Trachea midline Respiratory/Chest: Normal breath sounds, CTA Cardiovascular: S1, S2, No murmur Abdomen/GI:Soft, Non tender, Bowel sounds present Back: Surgical site in dressing, +Drain Extremities/Musculoskelatal:normal inspection, no edema Neurologic/Psych:AAOX3, grossly no focal neurological deficits Skin: normal color, warm Results & Data Results & Data ([facility]) Vital Signs (Past 12 Hours) Vital Signs Temp Pulse Resp BP BP Pulse Ox 07/04/20 16:16 36.5 C 85 16 125/68 96 07/04/20 06:52 36.6 C 83 16 136/86 96 Laboratory Results Short CBC 07/04/20 Range/Units 06:09 WBC 7.34 (4.8-10.8) K/uL Hgb 12.7 L (14.0-18.0) g/dL Hct 35.9 L (42-52) % Plt Count 158 (130-400) K/uL BMP 07/04/20 06:09 Sodium 138 Potassium 3.7 Chloride 102 Carbon Dioxide 29 BUN 15 Creatinine 0.88 Glucose 94 Calcium 9.1
[2020-07-04] MEDS: DOCUSATE SODIUM/SENNA 50/8.6MG TAB PO SCH (21:16)
[2020-07-04] MEDS: SIMVASTATIN 10 MG TAB PO SCH (21:16)
[2020-07-05] MEDS: POLYETHYLENE (MIRALAX) 17 GM PACK PO SCH ×2 (00:02→04:48)
[2020-07-05 07:53] VITALS: TEMP 97.7; O2SAT 99
[2020-07-05] MEDS: INSULIN ASPART 100 UNITS/ML 3 ML PEN SC SCH ×2 (08:30→12:47)
[2020-07-05] MEDS: LOSARTAN POTASSIUM 50 MG TAB PO SCH (08:34)
[2020-07-05] MEDS: CETIRIZINE HCL 10 MG TABLET PO SCH (08:35)
[2020-07-05] MEDS: ASPIRIN 325 MG ECTAB PO SCH (08:35)
[2020-07-05] MEDS: MULTIVITAMIN TAB PO SCH (08:35)
[2020-07-05] MEDS: CARVEDILOL PO SCH (08:36)
[2020-07-05] MEDS: DEXAMETHASONE SOD PHOSPHATE 8 MG in SYRINGE 0 ML IV SCH (08:37)
[2020-07-05] MEDS ORDERED: INSULIN GLARGINE SOLOSTAR 100 UNITS/ML 3 ML PEN SC SCH (09:00)
[2020-07-05 11:02] VITALS: BP 136/86; PULSE 93
--- NOTE | 2020-07-05 11:27 | Discharge Summary ---
Date of Service July 05, 2020 Admission HPI Per Admitting Provider This is 65-year-old male well-known to the presents with worsening back and leg pain. After failing course of nonoperative care is here for surgical intervention. Principal Diagnosis Lumbar spinal stenosis with neurogenic claudication Discharge Data Allergies Allergy/AdvReac Type Severity Reaction Status Date / Time cephalexin Allergy Unknown HIVES Unverified 07/02/20 08:56 Consultations 07/02/20 13:12 Consult Case Management - Discharge Planning Routine Consult Hospitalist Routine Procedures Performed Operation Date: 07/02/20 09:55 Actual Procedures p L3-L4 Decompression and Fusion, Spinal Cord Monitoring - Sammy Joseph DO s L4-S1 Hardware Removal - Sammy Joseph DO Ordered Studies 07/02/20 09:55 FL fluoroscopy <1hr Routine FL lumbar spine 2-3V Routine Hospital Course (1) Lumbar stenosis with neurogenic claudication: Patient underwent lumbar decompression fusion tolerated so was taken to orthopedic for postoperative. Postop day 1 is up and ambulating progressed to postop day 2 and 3 CARMINE drain decreasing probably. Pain well controlled. Neurologically intact. Subsequently discharged home. Discharge orders and instructions found the chart for further review. Total Time Total Time Spent Total Time Spent (In Minutes): 20 minutes Discharge Plan Discharge Items Patient Disposition: Home - Self-Care Reason For Visit: Spinal Stenosis, Lumbar Region with Neurogenic Discharge Diagnosis: Lumbar spinal stenosis with neurogenic claudication Activity: As commented below Non-emergency contact: Primary Care Provider Call non-emergency contact if: you have any medication questions Follow-up/Referrals: Rj Mansfield MD [Primary Care Provider] - Diet: Regular Addtl Attending Provider Instructions: ACTIVITY RECOMMENDATIONS: SELF CARE INSTRUCTIONS AFTER THORACIC/LUMBAR FUSIONS 1. You may walk to your tolerance. It is good exercise for your legs and back. Expect some back and intermittent leg aches and pains. 2. You may perform "counter-top" level activities (make a sandwich, gavi with a project, etc.). 3. No bending or lifting of more than 10 pounds or back twisting of any nature (roll like a log when turning in bed). 4. You may ride in a car for 20-30 minutes at a time. No driving until after your first visit with your doctor. 5. Frequent changes of position and restricting sitting to 30 minutes at a time will help limit the amount of back spasms and stiffness you may experience. 6. You may discontinue the use of ambulatory aids (cane, crutches, etc.) once your strength and confidence allow. 7. You may hr payroll coordinator the shower and let water strike your incision when you arrive home at least once daily. Do not take a tub bath, sit in a hot tub or go into a swimming pool until after your first recheck in the office. SPECIAL CARE INSTRUCTIONS: VERY IMPORTANT TO READ AND REVIEW A. Your surgical incision has been closed with a cosmetic suture under the skin that will dissolve in about 6 weeks. In 14 days, you can use a pair of clean scissors and cut the suture that is left outside of the skin at the ends of your incision. 1. The small skin tapes can be removed 7 days after surgery if they have not fallen off by that point. 2. You may keep the wound open to air as much as possible to promote healing after post-op day number 5 unless told otherwise by your doctor. 3. If you think the wound looks like it is becoming infected (redness or worsening drainage) and/or you are experiencing fever, chill or worsening back pain and muscle spasms, contact the office so that we may evaluate you as soon as possible. B. Complications are uncommon, but please contact us if you have any signs or symptoms of: 1. wound infection (fever higher than 102.5 degrees F, redness, separation of wound, drainage, or increasing pain from the incision) 2. blood clots in legs (pain, swelling, redness and warmth in legs) 3. urinary tract infection (fever higher than 102.5 degrees F, burning upon urination or increased frequency of urination) 4. nerve problems (inability to walk on your toes or heels, numbness, loss of bowel or bladder control) 5. any other symptoms that concern you C. Please call the office at if you have any concerns or questions about your operation or recovery. D. No smoking! Smoking drastically decreases the chance of a solid fusion. E. Do not take any anti-inflammatory medications (Indocin, Advil, Motrin, Aspirin, Naprosyn, etc.) as these may inhibit the chance of a solid fusion. Tylenol is okay to take for pain. MANAGING PAIN AFTER SPINAL SURGERY 1. Narcotic medication is intended for short-term use and will be provided for surgical pain. Surgical pain usually lasts for a period of 4-6 weeks. Narcotic medication includes Percocet, Vicodin, Darvocet, Tylenol #3 or Lortab. 2. Longer-term pain is more appropriately treated with non-narcotic medication such as Tylenol ES. 3. Muscle spasm is not appropriately treated with narcotics. Muscle relaxers such as Soma, Flexeril or Skelaxin can be used along with Tylenol ES. 4. Remember that we all live with some "aches and pains". This is not unusual or uncommon after an injury or as we get older. a. Back pain is expected and may include muscle spasms for 4 to 6 weeks after surgery. The pain should gradually improve. If the pain worsens for no apparent reason, please contact the office. b. Intermittent leg pain may also be experienced and should not be concerned about unless it worsens for no apparent reason. If so, please contact the office. 5. We will provide appropriate medication within the normal guidelines of their prescribed use. We will also be very cautious and aware of potential abuse and extended duration of patients' medication needs. a. Pain medications are for your comfort and to assist with sleep and rest so that the tissue can heal. They are not provided in order to return to normal activity and should not be used through the day. To do so or worsening pain at night can result from ongoing tissue damage and development of tolerance to the prescribed medicine. 6. Please allow 2-3 days to process refills. Prescriptions will not be mailed but must be picked up at the office. FOLLOW UP VISIT: Keep your scheduled follow-up appointment. Any questions, please call the office at . Pending Studies at Discharge: No Stand-Alone Forms: My [facility] [employer], Smoking Cessation Medications and DC Order Prescriptions: New oxycodone 5 mg tablet 5 mg PO Q6H PRN (Reason: pain, severe) Qty: 20 RF: 0 tramadol 50 mg tablet 50 mg PO Q6H PRN (Reason: pain, moderate) Qty: 20 RF: 0 Continued cetirizine [Zyrtec] 10 mg Tablet 10 mg PO QAM RF: 0 aspirin 325 mg Tablet 325 mg PO QAM RF: 0 simvastatin 10 mg Tablet 10 mg PO HS RF: 0 glimepiride 1 mg Tablet 1 mg PO QAM RF: 0 metformin 1,000 mg Tablet 1,000 mg PO BID RF: 0 Ocuvite Tablet 1 tab PO QAM RF: 0 Fish Oil 1,000 mg Capsule 1 cap PO PM RF: 0 Glucosamine Complex-MSM Capsule 1 cap PO PM RF: 0 tadalafil 5 mg Tablet 5 mg PO DAILY PRN (Reason: Erectile Dysfunction) RF: 0 losartan-hydrochlorothiazide 100-12.5 mg Tablet 1 tab PO QAM RF: 0 carvedilol phosphate 10 mg Capsule, Er Multiphase 24 Hr 10 mg PO QAM RF: 0 Victoza 3-Francisco J 0.6 mg/0.1 mL (18 mg/3 mL) Pen Injector 1.8 mg SUBCUT QAM RF: 0 Tresiba FlexTouch U-100 100 unit/mL (3 mL) Insulin Pen 130 unit SUBCUT QAM RF: 0 Discharge Orders: Discharge Order (Routine); Ordered 07/05/20 Ordered By: Sammy Cardozo/Other Patient Handouts: Managing Type 2 Diabetes Admission Data Admit Date/Time: 07/02/20 12:28 Attending Provider: Sammy Joseph Admit Provider: Sammy Joseph Primary Care Provider: Rj Mansfield Other Providers: Drew Sullivan Other Interventions: Discharge Summary Assessment (RN) Last Done: 07/05/20 11:00
[2020-07-05] MEDS: traMADol HCL 50 MG TABLET PO PRN (11:50)
--- NOTE | 2020-07-05 12:50 | Hospitalist Progress Note ---
Date of Service July 05, 2020 Assessment & Plan (1) Status post lumbar surgery: Lumbar stenosis with neurogenic claudication S/P S/P hardware removal L4-S1, decompression L2-L4, fusion L3-L4 by Dr Joseph POD #3 Acute blood loss anemia--Post OP Pain control, wound care, DVT prophylaxis as per orthopedics Appreciate orthopedics input PT OT Continue bowel regimen to prevent constipation Continue incentive spirometry Hb stable Needs follow-up with surgery upon discharge (2) Diabetes mellitus, type 2: A1c: 6.7 on 03/2020 per outpatient PCP note Insulin dependent Hold home meds Continue Insulin therapy Glycemic pharmacist consulted Continue home medications upon discharge (3) Hypertension: Continue carvedilol, losartan, HCTZ (4) Hyperlipidemia: Continue simvastatin (5) Sleep apnea: CPAP HS (6) BPH (benign prostatic hyperplasia): Recently prescribed tamsulosin Plan to start it as advised DVT Px: As per Ortho Code Status Full Code Admission and Anticipated Discharge Date Admission Date: July 02, 2020 Subjective Patient is seen and examined at bedside No new complaints Had BM Back pain is controlled Likely plan to be discharged today Denies chest pain, SOB, dizziness, nausea, abdominal pain Offers no other complaints Review of Systems Review of Systems: All systems reviewed & are unremarkable except as noted in HPI & below Physical Exam Physical Exam: Physical Exam: Vitals signs as noted above General Appearance:Moderately built and nourished, no apparent distress Head: normocephalic, Atraumatic Eyes: normal inspection, EOMI Neck: supple, Trachea midline Respiratory/Chest: Normal breath sounds, CTA Cardiovascular: S1, S2, No murmur Abdomen/GI:Soft, Non tender, Bowel sounds present Back: Surgical site in dressing, +Drain Extremities/Musculoskelatal:normal inspection, no edema Neurologic/Psych:AAOX3, grossly no focal neurological deficits Skin: normal color, warm Results & Data Results & Data ([facility]) Vital Signs (Past 12 Hours) Vital Signs Temp Pulse Pulse Pulse Resp BP BP 07/05/20 11:00 36.5 C 73 93 H 78 16 136/86 136/74 07/05/20 07:51 36.5 C 78 16 136/74 Pulse Ox 07/05/20 11:00 99 07/05/20 07:51 99
== END 2020-07-05 13:32 | disposition home or self-care (01) | DRG 454 ==
LOC: ASU 08:20 → 3E 12:28

== ENCOUNTER 2022-02-23 06:59 | Observation (INO) ==
--- NOTE | 2022-01-25 08:24 | History & Physical Report ---
Date of Service January 25, 2022 date of surgery: 02/23/22 Procedure: Left Total Knee Arthroplasty with possible removal Anterior Cruciate Ligament Screws Surgeon: Gal Whitaker Assessment & Plan (1) Arthritis of knee, left: Plan: Risks and benefits of procedure discussed in detail today, patient would like to proceed with a left total knee replacement with possible ACL screw removal at [facility] as scheduled. will obtain medical clearance prior to surgery as well as obtain PATs at [facility]. Will place on ASA 81mg po bid x 1 month post op, f/u 2 weeks post op for routine post-operative care and x-ray, sooner if having any problems. will make arrangements for HHPT at the time of discharge. At this point in time, has failed conservative measures and would like to proceed with surgical intervention. The risks and benefits have been discussed including, but not limited to, risk of infection, nerve injury, stiffness, loss of motion, failure to improve, etc. Reasonable outcomes and options of treatment were discussed. An explanation of appropriate alternatives to the procedure that may be advantageous were discussed and their risks and benefits, as well as the risks and benefits of not proceeding with treatment. I offered to answer any additional inquiries concerning the treatment involved. All the patient's questions were answered. The patient is agreeable, understanding of the treatment plan and alternatives, and wishes to proceed with the treatment plan. History of Present Illness Chief Complaint: left knee pain Primary Care Provider: Rj Mansfield MD Tyrone is a 66 year old male who complains of left knee pain, presents for pre-op evaluation prior to a left total knee replacement with possible removal ACL screws by Dr Whitaker at [facility]. He complains of pain, decreased range of motion, instability and stiffness in his left knee. Currently the patient states that the symptoms are moderate-severe and is described as aching, sharp and throbbing. currently rated as 7/10. His symptoms are aggravated by ascending stairs, daily activities, first steps while awake walking. Prior NSAIDs include IBU and Aleve. He has been treated with previous cortisone and visco injections in the past without much relief. He had prior ACL reconstruction [place] [address] Retana. Allergies Allergy/AdvReac Type Severity Reaction Status Date / Time cephalexin Allergy Unknown HIVES Verified 09/14/21 13:48 Home Medications Medication Instructions Recorded Confirmed Type aspirin 325 mg tablet 325 mg PO QAM 06/15/20 09/14/21 History cetirizine 10 mg tablet (Zyrtec) 10 mg PO QAM 06/15/20 09/14/21 History glimepiride 1 mg tablet 1 mg PO QAM 06/15/20 09/14/21 History kknwyqnpqwq-seg-xelkankic-vitC 1 cap PO PM 06/15/20 09/14/21 History capsule (Glucosamine Complex-MSM) insulin degludec 100 unit/mL (3 160 unit SUBCUT QAM 06/15/20 09/14/21 History mL) subcutaneous pen (Tresiba FlexTouch U-100 insulin) liraglutide 0.6 mg/0.1 mL (18 mg/3 1.8 mg SUBCUT QAM 06/15/20 09/14/21 History mL) subcutaneous pen injector (Victoza 3-Francisco J) losartan 100 1 tab PO QAM 06/15/20 09/14/21 History mg-hydrochlorothiazide 12.5 mg tablet metformin 1,000 mg tablet 1,000 mg PO BID 06/15/20 09/14/21 History simvastatin 10 mg tablet 10 mg PO HS 06/15/20 09/14/21 History tadalafil 5 mg tablet 5 mg PO DAILY PRN 06/15/20 09/14/21 History vitamin A-vitamin C-vit E-min 1 tab PO QAM 06/15/20 09/14/21 History tablet carvedilol 3.125 mg tablet 3.125 mg PO BID 09/14/21 09/14/21 History omega 5-ozo-swd-fish oil 1,000 mg 1 cap PO QAM 09/14/21 09/14/21 History (120 mg-180 mg) capsule tamsulosin 0.4 mg capsule 0.4 mg PO QAM 09/14/21 09/14/21 History Past Med/Surg History Medical History BPH (benign prostatic hyperplasia) Chronic back pain Degenerative disc disease Diabetes mellitus, type 2 Glucose well controlled per patient History of COVID-19 DX'D 08/2020 THRU MED [facility] [place]-MILD FLU-LIKE SYMPTOMS-RECOVERED AT HOME-SYMPTOMS RESOLVED Hyperlipidemia Hypertension Sleep apnea cpap, pt reports compliance Surgical History History of arthroscopy RIGHT SHOULDER History of arthroscopy RIGHT KNEE History of back surgery below L4 CAGE AND HARDWARE X 2 History of carpal tunnel release BILAT History of colonoscopy History of esophagogastroduodenoscopy (EGD) History of repair of ACL LEFT History of tonsillectomy History of tooth extraction Hx of elbow surgery RIGHT ULNAR NERVE Family History Other Coronary heart disease Hypertension Social History Smoking Status: Never smoker Second Hand Exposure: No; Hx Alcohol Use: Yes Alcohol type: beer Hx Substance Use: No Preferred Language: Spanish Communication Ability: Effective Senior Linux Unix Administrator Required: No Beliefs That Will Affect Care: None marital status: Current Living Situation: Spouse current occupational status: retired Feels Safe at Home: Yes Assistive Devices: CPAP, Glasses and Walker Review of Systems Review of Systems: All systems reviewed & are unremarkable except as noted in HPI & below Constitutional: no fever, no chills and no sweats Respiratory: no cough and no dyspnea Cardiovascular: no chest pain, no dyspnea and no orthopnea Gastrointestinal: no abdominal pain, no nausea and no vomiting Musculoskeletal: as per Subjective / HPI Physical Exam Physical Exam: HT: 5ft 10in WT: 225 lb BP: 136/75 Pulse: 94 Constitutional: WD/WN, vitals as above no acute distress Respiratory: normal respiratory effort, lungs clear to auscultation no respiratory distress, no labored breathing and does not use accessory muscles Cardiovascular: RRR, no murmur, no edema Gastrointestinal (Abdomen): normal bowel sounds, soft, nontender, no hepatosplenomegaly Musculoskeletal: Knee: + knee abnormal to inspection (left knee: ), + effusion (+1 effusion), + surgical incision (well healed portals), + limited ROM of knee (ROM 0/3/110), + knee ROM with crepitation, + joint line tenderness (medial joint line) and + Farideh's sign positive; no deformity, no skin erythema, no ecchymosis, no valgus laxity, no varus laxity, anterior drawer test negative, Duane's sign negative and pivot shift test negative Results & Data Results & Data ([facility]) Diagnostic Findings Left Knee X-ray: left knee series confirm advanced degenerative changes to the left knee, greatest medial compartments and patellofemoral joint, showing joint space narrowing, osteophyte formation and subchondral sclerosis. no acute bony pathology noted. bipartate patella noted, 2 screws noted from prior ACL re construction.
--- NOTE | 2022-02-14 11:45 | Anesthesiology Consultation ---
Date of Service February 14, 2022 Assessment & Plan (1) Encounter for pre-operative examination: - check BSG am DOS. - medical clearance 10/26/21: "...surgical clearance exam...A1c 7.2%...medically stable and cleared for left TKA..." - COVID screening: Per clinical assessment manager on 02/07/2022: Travel screen negative, no known COVID-19 positive contacts or current COVID-19 related symptoms in past 2 weeks. Patient vaccinated. Surgeon arranging preop COVID testing, scheduled 02/21/2022. Awaiting results. Chart Review Chart Review: Acceptable Risk for Surgery and Patient NOT seen in Pre Admission Testing History Surgery Operation Date: 02/23/22 12:40 Proposed Procedures p Left Total Knee Arthroplasty, Removal Anterior Cruciate Ligament Screws - Gal Whitaker DO Height/Weight Height: 5 ft 10 in Weight: 97.976 kg Allergies Allergy/AdvReac Type Severity Reaction Status Date / Time cephalexin Allergy Unknown HIVES Verified 02/07/22 08:38 Medications Home Medications Medication Instructions Recorded Confirmed Last Taken cetirizine 10 mg tablet (Zyrtec) 10 mg PO QAM 06/15/20 02/07/22 06/30/20 06:00 glimepiride 1 mg tablet 1 mg PO QAM 06/15/20 02/07/22 06/30/20 07:00 lsdcedbesji-rpj-qttnfayqy-vitC 1 cap PO PM 06/15/20 02/07/22 06/29/20 06:00 capsule (Glucosamine Complex-MSM) insulin degludec 100 unit/mL (3 160 unit SUBCUT QAM 06/15/20 02/07/22 07/02/20 06:00 mL) subcutaneous pen (Tresiba FlexTouch U-100 insulin) losartan 100 1 tab PO QAM 06/15/20 02/07/22 07/01/20 07:00 mg-hydrochlorothiazide 12.5 mg tablet metformin 1,000 mg tablet 1,000 mg PO BID 06/15/20 02/07/22 07/01/20 21:00 simvastatin 10 mg tablet 10 mg PO HS 06/15/20 02/07/22 06/30/20 21:00 tadalafil 5 mg tablet 5 mg PO DAILY PRN 06/15/20 02/07/22 07/01/20 07:00 vitamin A-vitamin C-vit E-min 1 tab PO QAM 06/15/20 02/07/22 Unknown tablet carvedilol 3.125 mg tablet 3.125 mg PO BID 09/14/21 02/07/22 Unknown tamsulosin 0.4 mg capsule 0.4 mg PO QAM 09/14/21 02/07/22 Unknown semaglutide 1 mg/dose (2 mg/1.5 1 mg SUBCUT WK 02/07/22 02/07/22 Unknown mL) subcutaneous pen injector Past Medical History Medical History (Updated 02/14/22 @ 11:37 by Vale Perez PA-C) BPH (benign prostatic hyperplasia) Chronic back pain Degenerative disc disease Diabetes mellitus, type 2 IDDM History of COVID-19 DX'D 08/2020 THRU MED ONE [place]-MILD FLU-LIKE SYMPTOMS-RECOVERED AT HOME-SYMPTOMS RESOLVED Hyperlipidemia Hypertension Sleep apnea cpap, pt reports compliance Past Family History Family History Other Coronary heart disease Hypertension Past Surgical History Surgical History (Updated 02/14/22 @ 11:39 by Vale Perez PA-C) History of arthroscopy RIGHT SHOULDER History of arthroscopy RIGHT KNEE History of back surgery below L4 CAGE AND HARDWARE X 2. L4-S1 decompression and fusion 07/02/2020: Grade 2 view, William 2, ETT 7.5. No issues postop per anesthesia progress note. History of carpal tunnel release BILAT History of colonoscopy History of esophagogastroduodenoscopy (EGD) History of repair of ACL LEFT History of tonsillectomy History of tooth extraction Hx of elbow surgery RIGHT ULNAR NERVE Social History Smoking Status: Former smoker Do You Dip or Chew Tobacco: Yes (1 CAN PER 3 DAYS) Smoking End Date: QUIT 1969' Hx Alcohol Use: Yes Alcohol type: beer alcohol intake frequency: holidays/special occasions only Hx Substance Use: No substance use type: does not use Testing Laboratory Results 01/25/2022 WBC: 5.2 H/H: 15/44 PLATELETS: 172 SODIUM: 141 POTASSIUM: 4.1 CHLORIDE: 105 CO2: 27 BUN: 21 CREATININE: 0.8 GLUCOSE: 106 PT: 14.1 PTT: 27 INR: 1.1 UA: clear, trace protein, negative bacteria Electrocardiogram Date: 10/11/21 Findings: + NSR @ (93bpm) and + no change from (June 18, 2020 per cardio ) RBBB Chest X-Ray Date: 10/11/21 No acute cardiopulmonary findings
[~2022-02-23 06:59] MED LIST changes: +BUPIVACAINE 0.25% 30 ML VIAL ONE; +BUPIVACAINE 0.5 % 5 MG/1 ML PF 10ML VIAL ONE; -CLINDAMYCIN 600 MG/54 ML BAG IV SCH; +DEXAMETHASONE SOD INJ 4 MG/ML VIAL ONE; +EPINEPHrine INJ 1 MG/ML AMP ONE; +FAMOTIDINE 20 MG TAB PO SCH; -LR 15ML/HR IV SCH; +LR 500ML BOLUS, THEN 15ML/HR IV SCH; +METOCLOPRAMIDE HCL 10 MG TABLET PO SCH; +ROPIVACAINE 0.5% HCL/PF 150 MG, BUPIVACAINE 0.75% MPF 20 ML, EPINEPHrine 30MG/30ML (OR ... INSTIL SCH; +TRANEXAMIC ACID 1,000 MG **IV Intra-op IV SCH; +TRANEXAMIC ACID 1,000 MG **IV Pre-op IV SCH; +VANCOMYCIN HCL 1,500 MG in SODIUM CHLORIDE 0.9% 500 ML IV SCH; -ceFAZolin 2000MG 2,000 MG/15 ML SYR IV SCH; +dexAMETHasone 4 MG TAB PO SCH; +oxyCODONE HCL 10 MG TABCR (OxyCONTIN) PO SCH
[2022-02-23] MEDS ORDERED: MIDAZOLAM HCL 1 MG/ML 2ML VIAL ONE (08:14)
[2022-02-23] MEDS ORDERED: PROPOFOL IV EMULSION 10 MG/ML 20 ML VIAL IV ONE (08:15)
--- NOTE | 2022-02-23 08:32 | History & Physical Bridge Note ---
Date of Service February 23, 2022 History & Physical Bridge Note I have examined the patient, reviewed the History & Physical and in the interval since the performance of the History & Physical I have noted the following changes of clinical significance: no changes noted
[2022-02-23] MEDS ORDERED: ORTHO JOINT ANESTHETIC ONE (09:12)
--- NOTE | 2022-02-23 10:32 | Anesthesiology Progress Note ---
Date of Service February 23, 2022 Anesthesia Post Procedure Vital Signs Vital Signs: Temp Pulse Resp BP Pulse Ox 02/23/22 07:39 37 C 82 20 159/87 H 96 Pain Intensity Left Knee: Pain Intensity: 4 Transfer of Care Handoff Completed per policy Notes Mental Status: alert / awake / arousable Patient Amnestic to Procedure: Yes Nausea / Vomiting: adequately controlled Pain: adequately controlled Airway Patency, RR, SpO2: stable & adequate BP & HR: stable & adequate Hydration State: stable & adequate Anesthetic Complications: no major complications apparent
--- NOTE | 2022-02-23 11:43 | Operative Report ---
Post Operative Report Pre & Post Diagnosis Operation Date: 02/23/22 09:35 Pre-Op Diagnosis: Left Knee Osteoarthritis Post-Op Diagnosis: Left Knee Osteoarthritis I identified the patient and participated in the time-out.: Yes Procedure Operation Date: 02/23/22 09:35 Actual Procedures p Left Total Knee Arthroplasty, utilizing [employer] persona size femur 9 standard tibia F polyten medial constrained patella 31 oval (Left) - Gal Whitaker DO Surgeon Gal Whitaker DO Branch Operations Coordinator JES Banks Estimated Blood Loss 5 Findings Consistent with Post-Op Diagnosis Patient presents with severe end-stage DJD and previous undergone ACL reconstruction had retained hardware tibia and femur for interference screws severe varus alignment marginal osteophytes 15 degree flexion contracture patient presents with a severe end-stage DJD eburnated bone subchondral sclerosis marginal osteophytes and moderate to large effusion Specimens Bone and cartilage Drains Medium bore Hemovac Anesthesia Type MAC Spinal Regional Complications none Disposition Accompanied Patient To Recovery: No Disposition: Recovery Room Indications Patient presents after failed attempted conservative management and physical therapy anti-inflammatories relative rest activity modification corticosteroid injection viscosupplementation above intraoperative findings no time surgery. Description of Procedure After proper prepping and draping of the left lower extremity anterior midline incision was made over the region of the extensor extensor mechanism after meticulous hemostasis was obtained and maintained in subcutaneous tissues a medial parapatellar incision was made The patella was subluxed lateralward the medial lateral gutter were cleaned from any hypertrophic synovitis and scar tissue of the distal femoral block was placed and the distal femoral osteotomy cut was made subsequently the chamfers anterior and posterior osteotomy cuts were made utilizing the 4-in-1 block the tibia was subsequently subluxed anteriorward medial and ateral meniscal remnants were excised in their entirety remnants of the anterior and posterior cruciate ligaments were excised in their entirety excellent exposure of the proximal tibia was obtained the tibial osteotomy guide was placed on the proximal tibial osteotomy cut was made once again the knee was irrigated with copious amounts of sterile saline solution the patella was subsequently everted lateralward thickened scar tissue around the patella was removed the patella was subsequently cut utilizing a freehand technique and was drilled prepared for final preparation and placement of patella socially flexion-extension gaps were checked and the equal and symmetric trials were placed to the appropriate femoral and tibial trials with poly-spacer being placed for equal flexion and extension gaps and full range of motion including extension to 0 and flexion to 140 the trial components after having been taken to recovery range of motion was subsequently removed meticulous hemostasis was obtained and maintained subsequently a knee block injection of joint cocktail including ropivacaine 0.5% 150 mg. Bupivacaine 0.5% epinephrine 1-200,030 mL's toradol 30 mg dexamethasone 4 mg ketamine 10 mg clonidine 100 micrograms normal saline solution 30 mg was infiltrated into the soft tissues of the posterior knee medial lateral gutters and periosteal synovium special attention was paid to protect neurovascular structures at all times subsequently trial components having been removed the knee was irrigated with sterile saline solution. debris was removed the proximal tibia was subsequently prepared and was made ready for the placement of the tibial component tibial component was also cemented and tamped into position the femoral component was subsequently placed and cemented in the position the patellar component was subsequently cemented in position because hemostasis once again obtained and maintained wound having been thoroughly irrigated with debridement and debridement lavage was performed as well as a medial parapatellar incision closed with #1 Vicryl in interrupted fashion subcutaneous was closed with #2 Vicryl skin was closed with skin clips. PA-C was necessary for prepping and drapping as well as wound closure of deep fascia Sub cutaneous tissue and skin and was necessary for the case. A sterile compressive dressing was placed patient was taken to recovery in stable condition of report dictated by Sherman I attest to the content of the Intraoperative Record and any orders documented therein. Any exceptions are noted below.Due to the complex nature of the procedure, the entire surgery was performed with the operational assistance of JES Banks The assistant pastry chef, under direct supervision, was involved in the actual performance of all aspects of the surgical procedure including hemostasis, tissue retraction and incision, instrument management, patient positioning, and wound closure. I attest to the content of the Intraoperative Record and any orders documented therein. Any exceptions are noted below.
--- NOTE | 2022-02-23 12:47 | XRay Report ---
XR knee LT 1 or 2V routine CLINICAL HISTORY: Postoperative evaluation. COMPARISON: None FINDINGS: Alignment of the total left knee arthroplasty is anatomic. No periprosthetic fracture or u nexpected radiopaque foreign bodies are noted. Drains are in place. Evidence for previous ACL reconst ruction. IMPRESSION: Expected findings following total left knee arthroplasty. ACT 112: Negative or not required by law. Electronically signed by: Antonino Kirk M.D. 02/23/2022 12:46 PM
--- NOTE | 2022-02-23 13:29 | Anesthesiology Progress Note ---
Date of Service February 23, 2022 Anesthesia Post Procedure Vital Signs Vital Signs: Temp Pulse Pulse Resp BP Pulse Ox 02/23/22 13:20 36.1 C L 83 18 112/77 96 02/23/22 13:10 82 13 103/69 96 02/23/22 13:00 80 14 122/73 97 02/23/22 12:50 83 14 122/72 94 02/23/22 12:40 87 13 123/66 97 02/23/22 12:30 83 12 122/64 97 02/23/22 12:20 83 14 129/73 97 02/23/22 12:10 36.0 C L 91 H 16 125/73 98 02/23/22 07:39 37 C 82 20 159/87 H 96 Pain Intensity Left Knee: Pain Intensity: 4 Transfer of Care Handoff Completed per policy Notes Mental Status: alert / awake / arousable Patient Amnestic to Procedure: Yes Nausea / Vomiting: adequately controlled Pain: adequately controlled Airway Patency, RR, SpO2: stable & adequate BP & HR: stable & adequate Hydration State: stable & adequate Neuraxial Anesthesia: was administered and sensory block is resolving Anesthetic Complications: no major complications apparent and Pt Satisfied with anesthetic care
--- NOTE | 2022-02-23 13:54 | Pharmacy Report ---
Pharmacy Glycemic Short Note 2 - Date of Service February 23, 2022 - Glycemic Short BSG Results (Last 24 hours): 02/23/22 02/23/22 07:45 12:12 POC Glucose 160 H 181 H OUTPATIENT ANTIDIABETIC REGIMEN: * Tresiba 160 units Q AM * Ozempic 1mg SQ weekly (last dose 02/17) * Metformin 1gm PO BID * Glimepiride 1mg PO daily * A1c = 10-11-21 ASSESSMENT: * Patient admitted for L TKA * Patient had been followed by glycemic control service in the past (06/2020 for spinal stenosis surgery) * Dexamethasone 8mg PO x 1 ordered preop. BSGs fairly well controlled thus far. * Will provide supplemental dose of basal insulin post-op x 1 as he only received 65 units basal this AM. Will utilize Novolog CF and CR based upon weight and "severe" stress level which would be equivalent to dosing based upon out-pt insulin regimen. Of note, this is a regimen similar to that used on prior admission and it did perform well at the time. PLAN FOR INPATIENT GLYCEMIC CONTROL: * Hold outpatient oral diabetes medications * Basal insulin * Lantus 35 units SQ x1 today, then begin 100 units SQ Q AM tomorrow. Lantus is being used as Tresiba is non-formulary * Bolus insulin * NovoLog per scale ACHS or Q6hrs while NPO * Goal Range: Low 110 mg/dL - High 140 mg/dL * Correction Factor: 15 mg/dL/unit * Nutritional / Prandial insulin per carb ratio of 1 unit per 5 grams CHO consumed
[2022-02-23] MEDS ORDERED: bisacodyL 10 MG SUPP PR PRN (14:00)
[2022-02-23] MEDS ORDERED: INSULIN GLARGINE SOLOSTAR 100 UNITS/ML 3 ML PEN SC STA (14:00)
[2022-02-23] MEDS ORDERED: PHARMACY GLYCEMIC MGMT CONSULT PRN (14:00)
[2022-02-23] MEDS ORDERED: diphenhydrAMINE Capsule 25 MG CAP PO PRN (14:00)
[2022-02-23] MEDS ORDERED: ONDANSETRON INJ 2 MG/ML 2 ML VIAL IV PRN (14:00)
[2022-02-23] MEDS ORDERED: HYDROmorphone INJ 1 MG/ML SYRINGE IV PRN (14:00)
[2022-02-23] MEDS ORDERED: INSULIN ASPART PER UNIT SC ONE (14:00)
[2022-02-23] MEDS ORDERED: METOCLOPRAMIDE HCL INJ 5 MG/ML 2 ML VIAL IV PRN (14:00)
[2022-02-23] MEDS ORDERED: MAGNESIUM HYDROXIDE SUSP 30 ML UDC PO PRN (14:00)
[2022-02-23] MEDS ORDERED: NALOXONE HCL 0.4 MG/1 ML VIAL/CARP IV PRN (14:00)
[2022-02-23] MEDS ORDERED: GLUCOSE 40% GEL 15 GM TUBE PO PRN (14:15)
[2022-02-23] MEDS ORDERED: GLUCAGON FOR INJ 1 MG VIAL IM PRN (14:15)
[2022-02-23] MEDS ORDERED: GLUCOSE 10 TABS/TUBE PO PRN (14:15)
[2022-02-23] MEDS ORDERED: DEXTROSE 50% 50 ML SYRINGE IV PRN (14:15)
[2022-02-23] MEDS ORDERED: CARBOHYDRATES FOR HYPOGLYCEMIA PO PRN (14:15)
--- NOTE | 2022-02-23 14:43 | Hospitalist Consultation ---
Date of Consultation February 23, 2022 Assessment & Plan (1) Arthritis of knee, left: POD #0 left knee arthroplasty Pain, IV fluids and VTE management per orthopedics (2) BPH (benign prostatic hyperplasia): Tamsulosin 0.4 mg p.o. every morning (3) Sleep apnea: CPAP at bedtime (4) Hyperlipidemia: Continue simvastatin 10 mg p.o. at bedtime (5) Hypertension: Continue carvedilol and losartan. We will hold hydrochlorothiazide in the immediate postoperative period. (6) Diabetes mellitus, type 2: HbA1c 7.2 in September 2021. Follows with endocrinology in [place]. Recent decrease in Tresiba changed on home med list, Ozempic 1 mg subcu weekly took 02/17 therefore still active, metformin 1 g p.o. twice daily, glimepiride 1 mg p.o. daily (will be covering with Novolog in regards to this). Pharmacy consulted for glycemic control while here - reviewed plan from Adair Clemons. VTE Prophylaxis -Per primary team Diet - T2DM Disposition - thank you for the consult, medicine team will review patient with labs tomorrow History of Present Illness Reason for Consultation: post op, h/o HTN, DM Attending Physician: Gal Whitaker, DO History of Present Illness Tyrone Bowens is a 66-year-old male admission for left total knee arthroplasty due to osteoarthritis performed by Dr. Whitaker earlier today. Estimated blood loss 5 mL. The patient has a significant history of hypertension for which he takes carvedilol 3.125 mg p.o. twice daily, losartan 100 mg, hydrochlorothiazide 12.5 mg. He denies any history of heart attacks or strokes He has a significant history of type 2 diabetes follows with endocrinology in [place]. Reports his last HbA1c although not in our EHR was 6.4. Glucose levels have been much better controlled on Ozempic than his previous Victoza and he is actually reduced his Tresiba to 150 units daily starting approximately 2 weeks ago due to hypoglycemic. Reports urinary/prostate symptoms under control with tamsulosin. Allergies Allergy/AdvReac Type Severity Reaction Status Date / Time cephalexin Allergy Intermediate HIVES Verified 02/23/22 07:35 Home Medications Medication Instructions Recorded Confirmed Type cetirizine 10 mg tablet (Zyrtec) 10 mg PO QAM 06/15/20 02/23/22 History glimepiride 1 mg tablet 1 mg PO QAM 06/15/20 02/23/22 History bdtxhofbgya-ftx-itnhezlhy-vitC 1 cap PO PM 06/15/20 02/23/22 History capsule (Glucosamine Complex-MSM) insulin degludec 100 unit/mL (3 150 unit SUBCUT QAM 06/15/20 02/23/22 History mL) subcutaneous pen (Tresiba FlexTouch U-100 insulin) losartan 100 1 tab PO QAM 06/15/20 02/23/22 History mg-hydrochlorothiazide 12.5 mg tablet metformin 1,000 mg tablet 1,000 mg PO BID 06/15/20 02/23/22 History simvastatin 10 mg tablet 10 mg PO HS 06/15/20 02/23/22 History tadalafil 5 mg tablet (Cialis) 5 mg PO DAILY PRN 06/15/20 02/23/22 History vitamin A-vitamin C-vit E-min 1 tab PO QAM 06/15/20 02/23/22 History tablet carvedilol 3.125 mg tablet 3.125 mg PO BID 09/14/21 02/23/22 History tamsulosin 0.4 mg capsule 0.4 mg PO QAM 09/14/21 02/23/22 History semaglutide 1 mg/dose (2 mg/1.5 1 mg SUBCUT WK 02/07/22 02/23/22 History mL) subcutaneous pen injector aspirin 325 mg tablet 325 mg PO DAILY 02/23/22 02/23/22 History Patient History Medical History BPH (benign prostatic hyperplasia) Chronic back pain Degenerative disc disease Diabetes mellitus, type 2 IDDM History of COVID-19 DX'D 08/2020 THRU [facility]-MILD FLU-LIKE SYMPTOMS-RECOVERED AT HOME-SYMPTOMS RESOLVED Hyperlipidemia Hypertension Sleep apnea cpap, pt reports compliance Surgical History History of arthroscopy RIGHT SHOULDER History of arthroscopy RIGHT KNEE History of back surgery below L4 CAGE AND HARDWARE X 2. L4-S1 decompression and fusion 07/02/2020: Grade 2 view, William 2, ETT 7.5. No issues postop per anesthesia progress note. History of carpal tunnel release BILAT History of colonoscopy History of esophagogastroduodenoscopy (EGD) History of repair of ACL LEFT History of tonsillectomy History of tooth extraction Hx of elbow surgery RIGHT ULNAR NERVE Family History Other Coronary heart disease Hypertension Social History Smoking Status: Never smoker Smoking End Date: QUIT ; Second Hand Exposure: No; Do You Dip or Chew Tobacco: Yes (1 CAN PER 3 DAYS); Hx Alcohol Use: Yes Alcohol type: beer Hx Substance Use: No Preferred Language: Romansh Communication Ability: Effective Medical Receptionist Biller Required: No Beliefs That Will Affect Care: None marital status: Current Living Situation: Spouse current occupational status: retired Other Information That Helps Us Care for You: No Feels Safe at Home: Yes Safety Concerns: Feels Safe At This Time Assistive Devices: CPAP, Glasses and Walker Review of Systems Review of Systems: All systems reviewed & are unremarkable except as noted in HPI & below Physical Exam Constitutional: WD/WN, vitals as above ENMT: external ear and nose normal, oropharynx normal Neck: trachea midline, no thyromegaly Respiratory: normal respiratory effort, lungs clear to auscultation Cardiovascular: RRR, no murmur, no edema Vessels: dorsalis pedis pulses present Extremities: normal capillary refill (toes) Gastrointestinal (Abdomen): normal bowel sounds, soft, nontender, no hepatosplenomegaly Musculoskeletal: no cyanosis or clubbing, extremities motor strength 5/5 Skin: no rashes, warm and dry Neurologic: moves all extremities and awake; no focal motor deficits and not confused Psychiatric: A+Ox3, euthymic affect Results & Data Results & Data ([facility]) Vital Signs (Past 12 Hours) Vital Signs Temp Pulse Pulse Resp BP Pulse Ox 02/23/22 14:22 36.3 C L 83 16 123/73 94 02/23/22 14:09 84 18 128/77 94 02/23/22 13:49 36.4 C L 97 H 18 130/73 95 02/23/22 13:35 83 15 111/70 96 02/23/22 13:20 36.1 C L 83 18 112/77 96 02/23/22 13:10 82 13 103/69 96 02/23/22 13:00 80 14 122/73 97 02/23/22 12:50 83 14 122/72 94 02/23/22 12:40 87 13 123/66 97 02/23/22 12:30 83 12 122/64 97 02/23/22 12:20 83 14 129/73 97 02/23/22 12:10 36.0 C L 91 H 16 125/73 98 02/23/22 07:39 37 C 82 20 159/87 H 96 PG Care Time/CCT Total # of Minutes Spent Total Time Spent with Patient: Total time spent is greater than 50% in coordination of care (as documented) at patient's floor/unit and/or counseling patient: Coding Level of Care Code 80119 Inpt Consult Level 3 Diagnoses BPH (benign prostatic hyperplasia) N40.0 Sleep apnea G47.30 Hyperlipidemia E78.5 Hypertension I10 Diabetes mellitus, type 2 E11.9 Arthritis of knee, left M17.12
[2022-02-23] MEDS: ACETAMINOPHEN 500 MG TAB PO SCH ×2 (15:05→21:50)
[2022-02-23] MEDS: KETOROLAC TROMETHAMINE 15 MG/ML VIAL IV SCH ×2 (16:07→20:11)
[2022-02-23] MEDS: SODIUM CHLORIDE 0.9% 1000ML 1,000 ML IV SCH (16:14)
[2022-02-23] MEDS: INSULIN ASPART PER UNIT SC SCH ×3 (18:11→23:40)
[2022-02-23] MEDS: oxyCODONE HCL IR 5 MG TAB (IMMEDIATE RELEASE) PO PRN (18:45)
[2022-02-23] MEDS: CLINDAMYCIN 600 MG in DEXTROSE 5% 50 ML IV SCH (18:50)
[2022-02-23] MEDS: carvediloL 3.125 MG TAB PO SCH (20:09)
[2022-02-23] MEDS: ASPIRIN 81 MG ECTAB PO SCH (20:10)
[2022-02-23] MEDS: DOCUSATE SODIUM 100 MG CAP PO SCH (20:10)
[2022-02-23] MEDS ORDERED: SIMVASTATIN 10 MG TAB PO SCH (21:00)
[2022-02-23] MEDS ORDERED: SENNA 8.6 MG TAB PO SCH (21:00)
[2022-02-24] MEDS: KETOROLAC TROMETHAMINE 15 MG/ML VIAL IV SCH ×2 (02:02→09:10)
[2022-02-24] MEDS: CLINDAMYCIN 600 MG in DEXTROSE 5% 50 ML IV SCH (02:03)
[2022-02-24] MEDS: SODIUM CHLORIDE 0.9% 1000ML 1,000 ML IV SCH (03:57)
[2022-02-24] MEDS: INSULIN ASPART PER UNIT SC SCH ×2 (04:02→09:09)
[2022-02-24] MEDS: ACETAMINOPHEN 500 MG TAB PO SCH (05:48)
[2022-02-24 06:07] LABS: Hematocrit (blood only) 36.5 % (42-52); Mean Corpuscular Hgb Conc 35.6 g/dL (32-36); Mean Corpuscular Volume 84.3 fL (80-100); Mean Platelet Volume 10.8 fL (7.4-10.4); Platelet Count 166 K/uL (130-400); RDW Coefficient of Variation 13.5 % (11.5-14.5); RDW Standard Deviation 41.1 fL (36.4-46.3); Red Blood Count 4.33 M/uL (4.7-6.1); White Blood Count 16.42 K/uL (4.8-10.8)
[2022-02-24 06:47] LABS: BUN Creatinine Ratio 34.5 (10-20); Calcium 8.6 mg/dl (8.5-10.1); Creatinine Clr Calc Pharmacy 98.1 ml/min; Est GFR (African American) 104.2 ml/min; Est GFR (Non-African American) 89.9 ml/min; Potassium 4.1 mmol/L (3.5-5.1)
[2022-02-24 06:56] LABS: Estimated Average Glucose 140 mg/dl; Hemoglobin A1C 6.5 % (4.5-5.6)
[2022-02-24] MEDS: carvediloL 3.125 MG TAB PO SCH (08:05)
[2022-02-24] MEDS: ASPIRIN 81 MG ECTAB PO SCH (08:05)
[2022-02-24] MEDS: DOCUSATE SODIUM 100 MG CAP PO SCH (08:06)
--- NOTE | 2022-02-24 08:50 | Orthopedic Progress Note ---
Date of Service February 24, 2022 Assessment & Plan (1) Arthritis of knee, left: Plan: Postop day 1 s/p left total knee arthroplasty PT/OT protocols. Weightbearing as tolerated. DVT prophylaxis-aspirin p.o. twice daily, JOANNE Arreguin. Pain management as written. Leukocytosis-likely secondary to preoperative steroids and or surgical stress. Patient currently asymptomatic. DC planning - patient is planning for outpatient PT upon discharge. Plan for possible discharge later today. Admission and Anticipated Discharge Date Admission Date: February 23, 2022 Subjective Postop day 1 Patient sitting up in bed awake and alert. Patient states he feels well this morning. Pain is controlled. No complaints. Is hoping to go home today. Physical Exam Physical Exam: Dressings are clean, dry, and intact. Calves are soft nontender. Neurovascular intact. Toes are mobile. Hemovac drainage was 105 mL from the previous shift. Results & Data ([facility]) Vital Signs (Past 12 Hours) Vital Signs Temp Pulse Resp BP Pulse Ox 02/24/22 07:51 36.5 C 86 16 147/76 H 96 02/23/22 21:50 36.5 C 94 H 18 121/65 95 Laboratory Results Laboratory Results WBC 16.42 K/uL (4.8-10.8) H 02/24/22 05:33 RBC 4.33 M/uL (4.7-6.1) L 02/24/22 05:33 Hgb 13.0 g/dL (14.0-18.0) L 02/24/22 05:33 Hct 36.5 % (42-52) L 02/24/22 05:33 MCV 84.3 fL (80-100) 02/24/22 05:33 MCH 30.0 pg (25-34) 02/24/22 05:33 MCHC 35.6 g/dL (32-36) 02/24/22 05:33 RDW Std Deviation 41.1 fL (36.4-46.3) 02/24/22 05:33 RDW Coeff of Ottoniel 13.5 % (11.5-14.5) 02/24/22 05:33 Plt Count 166 K/uL (130-400) 02/24/22 05:33 MPV 10.8 fL (7.4-10.4) H 02/24/22 05:33 Sodium 136 mmol/L (136-145) 02/24/22 05:33 Potassium 4.1 mmol/L (3.5-5.1) 02/24/22 05:33 Chloride 103 mmol/L (98-107) 02/24/22 05:33 Carbon Dioxide 25 mmol/L (21-32) 02/24/22 05:33 Anion Gap 8 (3-11) 02/24/22 05:33 BUN 30 mg/dl (6-23) H 02/24/22 05:33 Creatinine 0.87 mg/dl (0.6-1.4) 02/24/22 05:33 Est Cr Clr Drug Dosing 98.1 ml/min 02/24/22 05:33 Est GFR ( Amer) 104.2 ml/min 02/24/22 05:33 Est GFR (Non-Af Amer) 89.9 ml/min 02/24/22 05:33 BUN/Creatinine Ratio 34.5 (10-20) H 02/24/22 05:33 Glucose 172 mg/dl (70-99(Fasting)) H 02/24/22 05:33 POC Glucose 205 mg/dl (70-99) H 02/24/22 08:13 Estimat Average Glucose 140 mg/dl 02/24/22 05:33 Hemoglobin A1c 6.5 % (4.5-5.6) H 02/24/22 05:33 Calcium 8.6 mg/dl (8.5-10.1) 02/24/22 05:33 SARS-CoV-2, RNA, NAAT NEGATIVE (NEGATIVE) 02/23/22 07:18 Blood Type A Negative 02/23/22 07:37 Antibody Screen NEGATIVE 02/23/22 07:37 Impressions Knee X-Ray 02/23/22 12:18 XR knee LT 1 or 2V routine CLINICAL HISTORY: Postoperative evaluation. COMPARISON: None FINDINGS: Alignment of the total left knee arthroplasty is anatomic. No periprosthetic fracture or unexpected radiopaque foreign bodies are noted. Drains are in place. Evidence for previous ACL reconstruction. IMPRESSION: Expected findings following total left knee arthroplasty. ACT 112: Negative or not required by law. Electronically signed by: Antonino Kirk M.D. 02/23/2022 12:46 PM
[2022-02-24] MEDS ORDERED: TAMSULOSIN HCL 0.4 MG CAP PO SCH (09:00)
[2022-02-24] MEDS ORDERED: CETIRIZINE HCL 10 MG TABLET PO SCH (09:00)
[2022-02-24] MEDS ORDERED: LOSARTAN POTASSIUM 50 MG TAB PO SCH (09:00)
[2022-02-24] MEDS ORDERED: INSULIN GLARGINE SOLOSTAR 100 UNITS/ML 3 ML PEN SC SCH (09:00)
[2022-02-24] MEDS ORDERED: MULTIVITAMIN TAB PO SCH (09:00)
[2022-02-24] MEDS ORDERED: ASCORBIC ACID 500 MG TAB PO SCH (09:00)
[2022-02-24] MEDS ORDERED: CeleBREX 200 MG CAP PO SCH (09:00)
--- NOTE | 2022-02-24 09:51 | Hospitalist Progress Note ---
Date of Service February 24, 2022 Assessment & Plan (1) Arthritis of knee, left: Plan: - POD #1 left knee arthroplasty (02/23- Dr. Whitaker) - uneventful perioperative course - Recommend continued perioperative pain control and DVT prophylaxisat discretion of primary team - Thus far, meeting therapy goals except for step training (to be done later today prior to discharge to home) (2) Leukocytosis: Plan: - WBC 16K (POD #1). Was WNL prior to surgery - Most likely steroid-induced as Decadron given intraoperatively and from the stress of surgery (3) BPH (benign prostatic hyperplasia): Plan: - continue Tamsulosin 0.4 mg p.o. every morning (4) Sleep apnea: Plan: - continue CPAP at bedtime (5) Hyperlipidemia: Plan: - Continue simvastatin 10 mg p.o. at bedtime (6) Hypertension: Plan: - Continue carvedilol and Losartan/HCTZ (7) Diabetes mellitus, type 2: Plan: - Follows with endocrinology in [place]. - Recent decrease in Tresiba changed on home med list, Ozempic 1 mg subcu weekly took 02/17 therefore still active, metformin 1 g p.o. twice daily, glimepiride 1 mg p.o. daily - Pharmacy consulted for glycemic control while here - A1C 6.5%-- tight control Plan: Patient is medically and hemodynamically stable from a medical perspective to discharge to home once meeting therapy goals with step training Recommend continued DVT prophylaxis X 14 daysdrug, dose, and duration are at the discretion of primary team We will sign off on this patient from a medical standpoint but do not hesitate to reconsult should a problem arise. Thank you for allowing us to participate in the care of this patient. Admission and Anticipated Discharge Date Admission Date: February 23, 2022 Subjective Patient seen on daily rounds today. He is POD #1 s/p elective left TKA. He is tolerating pain medication without ill effects. He is meeting therapy goals but has yet to do step training. [place] Reports has been discharged by orthopedics pending step training. Denies fevers, chills, chest pain, shortness of breath, abdominal pain, nausea or vomiting. Review of Systems Review of Systems: All systems reviewed and are unremarkable except as noted in HPI and below Denies fevers, chills, headache, nasal congestion, sore throat, cough, chest pain, shortness of breath, palpitations, orthopnea, PND, abdominal pain, nausea, vomiting, diarrhea, constipation, dysuria, hematuria, frequency, back pain, joint pain or swelling, easy bruising or bleeding, skin lesions or rashes. Physical Exam Physical Exam: General: Resting comfortably in his bedside chair. He does not appear ill or toxic. NAD. HEENT: Head is AT/NC. Buccal mucosa is moist and pink Neck: No JVD. Negative hepatojugular reflex Cardiac: RRR without M/G/R Lungs: CTA without W/R/R Abdomen: Normoactive X4. Soft and nontender in all quadrants. Extremities: Left knee with SANTO wrap. Indwelling hemovac. DP/PT pulses intact and symmetrical. No calf tenderness. Negative jose's sign Neuro: A&O X4. Cranial nerves II through XII are grossly intact. No focal neuro deficits Skin: No obvious skin lesions or rashes Psych: Appropriate affect. Pleasant and cooperative Results & Data Results & Data ([facility]) Vital Signs (Past 12 Hours) Vital Signs Temp Pulse Resp BP Pulse Ox 02/24/22 07:51 36.5 C 86 16 147/76 H 96 Laboratory Results 02/24/22 05:33 02/24/22 05:33 PG Care Time/CCT Total # of Minutes Spent Total Time Spent with Patient: Total time spent is greater than 50% in coordination of care (as documented) at patient's floor/unit and/or counseling patient: Coding Level of Care Code 77920 Inpt Consult Level 4 Diagnoses Arthritis of knee, left M17.12 BPH (benign prostatic hyperplasia) N40.0 Sleep apnea G47.30 Hyperlipidemia E78.5 Hypertension I10 Diabetes mellitus, type 2 E11.9 Leukocytosis D72.829
[2022-02-24] MEDS: oxyCODONE HCL IR 5 MG TAB (IMMEDIATE RELEASE) PO PRN (12:19)
--- NOTE | 2022-02-24 12:33 | Pharmacy Report ---
Pharmacy Glycemic Short Note 2 - Date of Service February 24, 2022 - Glycemic Short BSG Results (Last 24 hours): 02/23/22 02/23/22 02/23/22 14:24 17:13 20:27 Glucose POC Glucose 206 H 304 H* 233 H 02/23/22 02/24/22 02/24/22 23:35 03:56 05:33 Glucose 172 H POC Glucose 179 H 183 H 02/24/22 02/24/22 08:13 12:10 Glucose POC Glucose 205 H 265 H OUTPATIENT ANTIDIABETIC REGIMEN: * Tresiba 160 units Q AM * Ozempic 1mg SQ weekly (last dose 02/17) * Metformin 1gm PO BID * Glimepiride 1mg PO daily * A1c = 10-11-21 ASSESSMENT: 02/24 * BSGs trended up yesterday, fasting still elevated this morning. Increased basal to 100 units this morning * Novolog parameter initially loosend this morning, tightened again as lunch BSG elevated 02/23 * Patient admitted for L TKA * Patient had been followed by glycemic control service in the past (06/2020 for spinal stenosis surgery) * Dexamethasone 8mg PO x 1 ordered preop. BSGs fairly well controlled thus far. * Will provide supplemental dose of basal insulin post-op x 1 as he only received 65 units basal this AM. Will utilize Novolog CF and CR based upon weight and "severe" stress level which would be equivalent to dosing based upon out-pt insulin regimen. Of note, this is a regimen similar to that used on prior admission and it did perform well at the time. PLAN FOR INPATIENT GLYCEMIC CONTROL: * Hold outpatient oral diabetes medications * Basal insulin * Lantus 100 units qAM * Bolus insulin * NovoLog per scale ACHS or Q6hrs while NPO * Goal Range: Low 110 mg/dL - High 140 mg/dL * Correction Factor: 12 mg/dL/unit * Nutritional / Prandial insulin per carb ratio of 1 unit per 3.5 grams CHO consumed
--- NOTE | 2022-02-28 07:59 | Discharge Summary ---
Date of Service date of discharge: February 24, 2022 date of admission: 02/23/22 Admission HPI Per Admitting Provider Tyrone is a 66 year old male who complains of left knee pain, presents for pre- op evaluation prior to a left total knee replacement with possible removal ACL screws by Dr Whitaker at [facility]. He complains of pain, decreased range of motion, instability and stiffness in his left knee. Currently the patient states that the symptoms are moderate-severe and is described as aching, sharp and throbbing. currently rated as 7/10. His symptoms are aggravated by ascending stairs, daily activities, first steps while awake walking. Prior NSAIDs include IBU and Aleve. He has been treated with previous cortisone and visco injections in the past without much relief. He had prior ACL [place] [address] Retana. Principal Diagnosis left knee arthritis Discharge Exam Musculoskeletal left knee: NVDI, calf SNT, negative jose sign. DP palpable, able to wiggle toes/ankle movement without difficulty. RICHARD dressing clean dry and intact. expected post-operative bruising noted. Discharge Data Allergies Allergy/AdvReac Type Severity Reaction Status Date / Time cephalexin Allergy Intermediate HIVES Verified 02/23/22 07:35 Consultations 02/23/22 14:00 Consult Hospitalist Routine Procedures Performed Operation Date: 02/23/22 09:35 Actual Procedures p Left Total Knee Arthroplasty, (Left) - Gal Whitaker DO s Removal Anterior Cruciate Ligament Screws(Left) - Gal Whitaker DO Ordered Studies 02/23/22 05:00 US - OR guided needle placemen Routine Hospital Course (1) Arthritis of knee, left: Postop day 1 s/p left total knee arthroplasty PT/OT protocols. Weightbearing as tolerated. DVT prophylaxis-aspirin p.o. twice daily, SCDsJOANNE. Pain management as written. Leukocytosis-likely secondary to preoperative steroids and or surgical stress. Patient currently asymptomatic. DC planning - patient is planning for outpatient PT upon discharge. Plan for possible discharge later today. Total Time Total Time Spent Total Time Spent (In Minutes): 20 Discharge Plan Discharge Items Patient Disposition: Home - Self-Care Reason For Visit: Left Knee Osteoarthritis Discharge Diagnosis: left total knee replacement Activity: Per Instructions section Weightbearing: Left weightbearing Weightbearing Comment: WBAT with walker Non-emergency contact: Surgeon Call non-emergency contact if: you have any medication questions, your temperature is above 101, your wound has increased redness, your wound has increased drainage and your wound pain has increased Follow-up/Referrals: Gal Whitaker, [Surgeon] - (Follow-up with Dr. Whitaker in 14 days from the day of your surgery for your first postoperative checkup) Rj Mansfield MD [Primary Care Provider] - Diet: Carb Consistent or DM2 Addtl Attending Provider Instructions: ACTIVITY RECOMMENDATIONS: SELF CARE INSTRUCTIONS AFTER TOTAL KNEE REPLACEMENT A. You may need to continue a physical therapy program after discharge from the hospital. There are several options available to you. Your doctor will assist you in selecting the best one for you. 1. An out-patient facility 2 to 3 times a week for therapy or home therapy. 2. Continue working on all exercises taught to you in the hospital. Your goals should be to increase bending of your knee to 90 degrees and beyond and to fully straighten your knee. B. You may progress at your own pace from walking with a walker or crutches to a cane; then to no assistive devices. C. Make walking a part of your daily routine. Be up as much as comfortable with rest periods throughout the day. Rest with leg elevation is very important. Use the ice wrap frequently for the first 3-4 weeks. D. There are no restrictions on activities. You may ride in a car, shop, participate in adjunct faculty and all social activities. E. Wear the long elastic stockings (JOANNE hose) 20 hours a day for 2 weeks after surgery. They can be removed several times a day for laundering and for a bath. F. You may shower, no tub baths until cleared by your doctor. SPECIAL CARE INSTRUCTIONS: VERY IMPORTANT TO READ AND REVIEW A. There are a few signs you need to watch for after you are home. Call [facility] if you notice any of the followin. Increased severe knee pain. Some pain is expected especially when you exercise. 2. Increased swelling in your leg or knee; pain or swelling of the calf muscle in either lower leg. 3. Any fluid drainage from the incision. 4. Shortness of breath or chest pain. B. Please call [facility] at if you have any concerns or questions about your operation or recovery. The doctor or his nurse will return your call promptly. C. You must take antibiotics before dental work, bladder, bowel or other surgery. Your doctor will provide you with a permanent care to carry describing this precaution. IMPORTANT: * REMEMBER TO TAKE ASPIRIN, 325 MG, TWICE DAILY FOR 4 WEEKS UNLESS OTHERWISE DIRECTED. THIS IS YOUR BLOOD THINNER. * HIGH RISK PATIENTS MAY BE PRESCRIBED A STRONGER BLOOD THINNER. THIS WILL BE PROVIDED AT DISCHARGE. * CALL IF INCREASED PAIN, REDNESS, DRAINAGE OR FEVER GREATER THAT 101. * WEAR JOANNE HOSE 20 HOURS PER DAY FOR 2 WEEKS. * RICHARD Dressing- This is a large suction dressing covering your incision. This will help pull any excess drainage from the wound and allow your incision to heal properly. You may shower with this if you can keep the unit outside of the shower. If any bleeding or leakage is noted please call your doctor's office. This will remain on your incision for 7 days and then should be removed. This can be done yourself or by the home nursing staff if applicable. The entire unit is disposable once removed. Once removed, keep incision clean and dry. If redness or drainage is noted, please call your surgeon. ONCE RICHARD IS REMOVED, FOLLOW THESE INSTRUCTIONS: DERMABOND Prineo- This is a mesh tape dressing that is covered with glue. It should remain in place until the incision is properly healed, usually 10-14 days. This dressing is designed to naturally slough off. You may trim the excess mesh tape as it peels off. Incision may be briefly wet in a shower. Dry immediately by blotting with a clean, dry towel. Do not bath or swim until instructed by your doctor. Do not scratch, rub, or pick at the dressing. Do not apply any topical ointments or lotions until dressing is completely removed and/or instructed by your doctor. There may be a small piece of suture material at one end of your incision. Do not pull or trim this. If it is bothersome or catching on clothing, you may cover it with a band-aid. IF INCISION IS LEAKING THROUGH DRESSING, CALL THE OFFICE . FOLLOW UP VISIT: If appointment is not already scheduled: Please call [facility] to make a follow-up appointment for 2 weeks after your surgery at . Stand-Alone Forms: My [facility] [employer], Smoking Cessation Medications and DC Order Prescriptions: New acetaminophen [Tylenol Extra Strength] 500 mg Tablet 1,000 mg PO Q8 14 Days Qty: 84 RF: 0 doxycycline hyclate 100 mg capsule 100 mg PO BID 14 Days Qty: 28 RF: 1 aspirin [Ecotrin] 325 mg tablet,delayed release (DR/EC) 325 mg PO BID 30 Days Qty: 60 RF: 0 oxycodone 5 mg Tablet 5 mg PO Q4H MDD 6 PRN (Reason: pain) Qty: 30 RF: 0 Continued cetirizine [Zyrtec] 10 mg Tablet 10 mg PO QAM RF: 0 simvastatin 10 mg Tablet 10 mg PO HS RF: 0 glimepiride 1 mg Tablet 1 mg PO QAM RF: 0 metformin 1,000 mg Tablet 1,000 mg PO BID RF: 0 vitamin A-vitamin C-vit E-min Tablet 1 tab PO QAM RF: 0 tadalafil [Cialis] 5 mg Tablet 5 mg PO DAILY PRN (Reason: Erectile Dysfunction) RF: 0 losartan-hydrochlorothiazide 100-12.5 mg Tablet 1 tab PO QAM RF: 0 Tresiba FlexTouch U-100 100 unit/mL (3 mL) Insulin Pen 150 unit SUBCUT QAM RF: 0 carvedilol 3.125 mg Tablet 3.125 mg PO BID RF: 0 tamsulosin 0.4 mg Capsule 0.4 mg PO QAM RF: 0 semaglutide 1 mg/dose (2 mg/1.5 mL) Pen Injector 1 mg SUBCUT WK RF: 0 Discontinued Glucosamine Complex-MSM Capsule 1 cap PO PM RF: 0 aspirin 325 mg Tablet 325 mg PO DAILY RF: 0 Discharge Orders: Discharge Order (Routine); Ordered 02/24/22 Ordered By: Juan Cardozo/Other Patient Handouts: Managing Type 2 Diabetes Admission Data Admit Date/Time: 02/23/22 12:18 Attending Provider: Gal Whitaker Admit Provider: Gal Whitaker Primary Care Provider: Rj Mansfield Other Providers: Yolanda Dumont ; Daniel Valles ; Liam Garcia ; Gal Rodriguez ; Juan Lo ; Javon Gordon ; Marli Cabezas ; Varun Shanks ; Marichuy Fish ; Nir William ; Neo Trujillo ; Radha Garcia ; Melba Mandel ; Teodoro Jean Baptiste ; Yolanda Son ; Socrates Ray ; Sharda Johnson ; Kong Johnson ; Daniel Zuniga ; Lexy Osorio ; Leticia Perera ; Jhon Lara ; Sirisha Dent ; Shaun Soriano ; Isaías Childs ; Juanita Truong ; Chato Salmeron ; William Coleman Other Interventions: Discharge Summary Assessment (RN) Last Done: 02/24/22 10:10
== END 2022-02-24 12:40 | disposition home or self-care (01) ==
LOC: ASU 06:59 → 3E 06:59
DX: Z88.1 Allergy status to other antibiotic agents; Z79.899 Other long term (current) drug therapy; Z79.4 Long term (current) use of insulin; M17.12 Unilateral primary osteoarthritis, left knee; G47.30 Sleep apnea, unspecified; E78.5 Hyperlipidemia, unspecified; Z79.82 Long term (current) use of aspirin; Z79.84 Long term (current) use of oral hypoglycemic drugs; I10 Essential (primary) hypertension; E11.9 Type 2 diabetes mellitus without complications

== ENCOUNTER 2023-12-29 05:03 | Inpatient (IN) ==
--- NOTE | 2023-12-21 14:34 | Anesthesiology Consultation ---
Date of Service December 21, 2023 Assessment & Plan (1) Encounter for pre-operative examination: Chart Review Chart Review: Acceptable Risk for Surgery and Patient NOT seen in Pre Admission Testing - Check BSG AM DOS -Infectious Disease screening: Per PAT nursing assessment on 12/21/23. No known infectious disease contacts in past 10 days or current infectious disease symptoms. No recent travel outside the country. Per cardio clearance letter 12/20/2023 = patient moderate risk for complications during proposed surgery. Patient is cleared for surgery. Patient may stop Plavix 7 days prior to surgery. Per cardio phone note 12/20/2023 = spoke with patient on telephone. No change in condition since last seen July. Feels better as time goes on since PCI. No chest pain. Functional capacity is less than 4 METS but this is felt secondary to his lumbar stenosis/radiculopathy. Scheduled for lumbar surgery 12/29/2023. B y RCRI, patient estimated risk of adverse outcome with noncardiac surgery is moderate. Given recent revascularization and absence of symptoms suggestive of ischemia, arrhythmia, heart failure, no further risk stratification is recommended. Patient may proceed with elective orthopedic spine surgery. Patient may hold Plavix 7 days prior to this procedure. Patient should restart Plavix post procedure when hemodynamically safe to do so. Will need to surgeon's discretion. Left TKA 02/23/2022 = done under SAB at L3-4 1 attempt. History Surgery Operation Date: 12/29/23 13:55 Proposed Procedures p Hardware Removal L3-L4, Decompression and Fusion L2-L3, Possible Re- Instrumentation L3-L4 - Sammy Joseph DO Height/Weight Height: 5 ft 10 in Weight: 95.254 kg Allergies Allergy/AdvReac Type Severity Reaction Status Date / Time cephalexin Allergy Intermediate HIVES Verified 12/21/23 13:09 Medications Home Medications Medication Instructions Recorded Confirmed Last Taken cetirizine 10 mg tablet (Zyrtec) 10 mg PO QPM 06/15/20 12/21/23 02/22/22 08:00 insulin degludec 100 unit/mL (3 135 unit subcut QAM 06/15/20 12/21/23 02/22/22 08:00 mL) subcutaneous pen (Tresiba FlexTouch U-100 insulin) metformin 1,000 mg tablet 1,000 mg PO BID 06/15/20 12/21/23 02/22/22 08:00 tadalafil 5 mg tablet (Cialis) 5 mg PO QAM 06/15/20 12/21/23 07/01/20 07:00 tamsulosin 0.4 mg capsule 0.4 mg PO QPM 09/14/21 12/21/23 02/22/22 08:00 aspirin 81 mg capsule 81 mg PO QPM 12/21/23 12/21/23 Unknown atorvastatin 40 mg tablet 40 mg PO QPM 12/21/23 12/21/23 Unknown cholecalciferol (vitamin D3) 125 5,000 unit PO QAM 12/21/23 12/21/23 Unknown mcg (5,000 unit) tablet (Vitamin D3) clopidogrel 75 mg tablet 75 mg PO QAM 12/21/23 12/21/23 Unknown docusate sodium 100 mg capsule 100 mg PO QAM 12/21/23 12/21/23 Unknown (Colace) empagliflozin 25 mg tablet 25 mg PO QAM 12/21/23 12/21/23 Unknown (Jardiance) losartan 100 mg tablet 100 mg PO QAM 12/21/23 12/21/23 Unknown metoprolol succinate 25 mg 25 mg PO QPM 12/21/23 12/21/23 Unknown tablet,extended release 24 hr vitamin A-vitamin C-vit E-min 1 tab PO QAM 12/21/23 12/21/23 Unknown tablet vitamin A90-xiqjdmopa factor 110 1 cap PO QAM 12/21/23 12/21/23 Unknown mg-0.5 mg capsule Past Medical History Medical History BPH (benign prostatic hyperplasia) CAD (coronary artery disease) MILEY x 2 to LAD on 05/22/23 Chronic back pain Degenerative disc disease Diabetes mellitus, type 2 IDDM History of COVID-19 2020 > resolve Hyperlipidemia Hypertension Sleep apnea cpap Past Family History Family History Other Coronary heart disease Hypertension Past Surgical History Surgical History History of arthroscopy rt shouler History of arthroscopy rt knee History of back surgery below L4 CAGE AND HARDWARE X 2. L4-S1 decompression and fusion 07/02/2020: Grade 2 view, William 2, ETT 7.5. No issues postop per anesthesia progress note. History of bilateral carpal tunnel release History of colonoscopy History of esophagogastroduodenoscopy (EGD) History of heart artery stent ANGELITA Douglass, +Stress - no CT, 2 stents - [place] [employer] XD, Both in LAD, follows with Dr. Guilherme Berrios History of left knee replacement History of repair of ACL lt History of tonsillectomy History of tooth extraction Hx of cardiac cath (~04/2023) ANGELITA Douglass, +Stress - no CT, 2 stents - [place] [employer] XD, Both in LAD, follows with Dr. Guilherme Berrios Hx of elbow surgery rt ulnar nerve Social History Smoking Status: Former smoker Smoking cigarettes per day: 1-2 cigs/day Do You Dip or Chew Tobacco: Yes (Chews 1/3 can per day (advised)) Smoking End Date: Quit 50 years ago Hx Alcohol Use: Yes Alcohol type: beer alcohol intake frequency: holidays/special occasions only Hx Substance Use: No substance use type: does not use Lab Results Anesthesia Preop Results Results Anesthesia Widget: WBC 7.20 K/ul (4.8-10.8) 12/19/23 Hgb 16.6 g/dl (14.0-18.0) 12/19/23 Hct 48.1 % (42.0-52.0) 12/19/23 Plt 162 K/uL (130-400) 12/19/23 Na 140 mmol/L (136-145) 12/19/23 K 3.9 mmol/L (3.5-5.1) 12/19/23 Cl 104 mmol/L (98-107) 12/19/23 CO2 27 mmol/L (21-32) 12/19/23 BUN 17 mg/dl (6-23) 12/19/23 Creat 0.67 mg/dl (0.6-1.4) 12/19/23 Glucose Level 70 mg/dl (70-99(Fasting)) 12/19/23 PT 12.5 Seconds (9.0-12.0) H 12/19/23 PTT 27 Seconds (21-31) 12/19/23 INR 1.2 (0.9-1.1) H 12/19/23 Urine Color Yellow 12/19/23 Urine Appearance Clear (Clear) 12/19/23 Urine pH 5.5 (4.5-7.5) 12/19/23 Urine Specific Lipan 1.014 (1.000-1.030) 12/19/23 Urine Protein Negative (Negative) 12/19/23 Urine Glucose (UA) 3+ (Negative) H 12/19/23 Urine Ketones Negative (Negative) 12/19/23 Urine Blood Negative (Negative) 12/19/23 Urine Nitrite Negative (Negative) 12/19/23 Urine Bilirubin Negative (Negative) 12/19/23 Urine Urobilinogen Negative (Negative) 12/19/23 Urine Leukocyte Esterase Negative (Negative) 12/19/23 Blood Type A Negative 12/19/23 Antibody Screen NEGATIVE 12/19/23 Testing Laboratory Results - Mildly elevated coags (on Plavix) Electrocardiogram Date: 12/19/23 Findings: + NSR @ (84 bpm) Right bundle branch block When compared to EKG from October 11, 2021no ischemic changes found per cardio Chest X-Ray Date: 12/19/23 Findings: + NAD Stress Test Date: 04/27/23 Borderline abnormal stress echo showed small resting wall motion abnormality in the apical lateral wall and apex which is not significantly changed with stress. At peak stress the apical septal segment is also normal. EKG positive. (Patient had subsequent cardiac catheterization with 2 stents placed to the LAD) Cardiac Catheterization Date: 05/22/23 LM= Mildly diseased LAD = 40% stenosis proximal LAD, 90% culprit lesion in the distal portion of LAD. D1 small sized disease. D2 medium in size and mildly diseased. A 3 mm in size no disease Circumflex = no evidence of disease RCA = no evidence of disease Conclusion: Distal LAD with calcified 90% lesion status post PCI with 2 overlapping MILEY stents. Proximal LAD is heavily calcified with 40% stenosis. Recommendations: Dual antiplatelet therapy for at least 6 months. Other Testing AAA screening 04/05/2023 = no abdominal aortic aneurysm identified. Incidentally noted coarse, heterogeneous hepatic parenchyma with patchy increased parenchymal echogenicity suggestive of geographic hepatic steatosis.
[~2023-12-29 05:03] MED LIST changes: -ACETAMINOPHEN 500 MG TAB PO SCH; +ALLERGY Noted to ORDERED Medication SCH; -BUPIVACAINE 0.25% 30 ML VIAL ONE; -BUPIVACAINE 0.5 % 5 MG/1 ML PF 10ML VIAL ONE; -CeleBREX 200 MG CAP PO SCH; -DEXAMETHASONE SOD INJ 4 MG/ML VIAL ONE; -EPINEPHrine INJ 1 MG/ML AMP ONE; -FAMOTIDINE 20 MG TAB PO SCH; -GABAPENTIN 300 MG CAP PO SCH; -LR 500ML BOLUS, THEN 15ML/HR IV SCH; -METOCLOPRAMIDE HCL 10 MG TABLET PO SCH; -ROPIVACAINE 0.5% HCL/PF 150 MG, BUPIVACAINE 0.75% MPF 20 ML, EPINEPHrine 30MG/30ML (OR ... INSTIL SCH; -TRANEXAMIC ACID 1,000 MG **IV Intra-op IV SCH; -TRANEXAMIC ACID 1,000 MG **IV Pre-op IV SCH; -VANCOMYCIN HCL 1,500 MG in SODIUM CHLORIDE 0.9% 500 ML IV SCH; -dexAMETHasone 4 MG TAB PO SCH; -oxyCODONE HCL 10 MG TABCR (OxyCONTIN) PO SCH
[2023-12-29] MEDS: VANCOMYCIN HCL 1,500 MG in SODIUM CHLORIDE 0.9% 500 ML IV SCH (05:39)
[2023-12-29] MEDS: LR 60ML/HR IV SCH (05:40)
[2023-12-29] MEDS: LR 15ML/HR IV SCH (05:40)
[2023-12-29] MEDS ORDERED: ceFAZolin 2000MG 2,000 MG/15 ML SYR IV SCH (06:00)
[2023-12-29] MEDS: GABAPENTIN 300 MG CAP PO SCH (06:02)
[2023-12-29] MEDS: ACETAMINOPHEN 500 MG TAB PO SCH (06:02)
[2023-12-29] MEDS: CeleBREX 200 MG CAP PO SCH (06:02)
[2023-12-29] MEDS ORDERED: ONDANSETRON INJ 2 MG/ML 2 ML VIAL IV PRN ×2 (06:54→11:09)
[2023-12-29] MEDS ORDERED: ePHEDrine sulfate 50 MG/ML AMP IV PRN (06:54)
[2023-12-29] MEDS ORDERED: fentaNYL citrate PF 100 MCG/2 ML VIAL IV PRN (06:54)
[2023-12-29] MEDS ORDERED: HYDROmorphone INJ 2 MG/ML SYR/VIAL IV PRN (06:54)
[2023-12-29] MEDS ORDERED: ATROPINE SULFATE 0.1 MG/ML 10ML SYR IV PRN (06:54)
[2023-12-29] MEDS ORDERED: DexMEDEtomidine HCL IV 100 MCG/ML VIAL IV ONE (07:09)
[2023-12-29] MEDS ORDERED: DEXTROSE 50% 50 ML SYRINGE IV ONE (07:10)
[2023-12-29] MEDS ORDERED: fentaNYL citrate PF 100 MCG/2 ML VIAL ONE ×2 (07:23→09:34)
[2023-12-29] MEDS ORDERED: MIDAZOLAM HCL 1 MG/ML 2ML VIAL ONE (07:23)
[2023-12-29] MEDS ORDERED: LIDOCAINE 2% 2 ML VIAL/AMP(20MG/ML) INFIL ONE (07:32)
[2023-12-29] MEDS ORDERED: ROCURONIUM BROMIDE 10 MG/ML 5 ML VIAL IV ONE ×4 (07:32→09:03)
[2023-12-29] MEDS ORDERED: PROPOFOL IV EMULSION 10 MG/ML 20 ML VIAL IV ONE (07:32)
[2023-12-29] MEDS ORDERED: ONDANSETRON INJ 2 MG/ML 2 ML VIAL ONE (07:32)
[2023-12-29] MEDS ORDERED: GLYCOPYRROLATE 0.2 MG/ML VIAL ONE (07:32)
[2023-12-29] MEDS ORDERED: diphenhydrAMINE 50 MG/ML VIAL ONE (07:32)
[2023-12-29] MEDS ORDERED: DEXAMETHASONE SOD INJ 4 MG/ML VIAL ONE ×2 (07:32→08:44)
--- NOTE | 2023-12-29 07:43 | History & Physical Bridge Note ---
Date of Service December 29, 2023 History & Physical Bridge Note I have examined the patient, reviewed the History & Physical and in the interval since the performance of the History & Physical I have noted the following changes of clinical significance: no changes noted
--- NOTE | 2023-12-29 07:44 | History & Physical Report ---
Date of Service December 29, 2023 Assessment & Plan (1) Lumbar stenosis with neurogenic claudication: Plan: Hardware removal L3-L4, decompression and fusion L2-L3, possible instrumentation L3-L4 History of Present Illness Chief Complaint: Back and leg pain Primary Care Provider: Liam Tang MD 60-year-old male presents with chronic persistent back and leg pain after failing course of nonoperative care is here for surgical invention. Allergies Allergy/AdvReac Type Severity Reaction Status Date / Time cephalexin Allergy Intermediate HIVES Verified 12/29/23 05:24 Home Medications Medication Instructions Recorded Confirmed Type cetirizine 10 mg tablet (Zyrtec) 10 mg PO QPM 06/15/20 12/29/23 History insulin degludec 100 unit/mL (3 135 unit subcut QAM 06/15/20 12/29/23 History mL) subcutaneous pen (Tresiba FlexTouch U-100 insulin) metformin 1,000 mg tablet 1,000 mg PO BID 06/15/20 12/29/23 History tadalafil 5 mg tablet (Cialis) 5 mg PO QAM 06/15/20 12/29/23 History tamsulosin 0.4 mg capsule 0.4 mg PO QPM 09/14/21 12/29/23 History aspirin 81 mg capsule 81 mg PO QPM 12/21/23 12/29/23 History atorvastatin 40 mg tablet 40 mg PO QPM 12/21/23 12/29/23 History cholecalciferol (vitamin D3) 125 5,000 unit PO QAM 12/21/23 12/29/23 History mcg (5,000 unit) tablet (Vitamin D3) clopidogrel 75 mg tablet 75 mg PO QAM 12/21/23 12/29/23 History docusate sodium 100 mg capsule 100 mg PO QAM 12/21/23 12/29/23 History (Colace) empagliflozin 25 mg tablet 25 mg PO QAM 12/21/23 12/29/23 History (Jardiance) losartan 100 mg tablet 100 mg PO QAM 12/21/23 12/29/23 History metoprolol succinate 25 mg 25 mg PO QPM 12/21/23 12/29/23 History tablet,extended release 24 hr vitamin A-vitamin C-vit E-min 1 tab PO QAM 12/21/23 12/29/23 History tablet vitamin F07-xpvtnkxgi factor 110 1 cap PO QAM 12/21/23 12/29/23 History mg-0.5 mg capsule Past Med/Surg History Medical History BPH (benign prostatic hyperplasia) CAD (coronary artery disease) MILEY x 2 to LAD on 05/22/23 Chronic back pain Degenerative disc disease Diabetes mellitus, type 2 IDDM History of COVID-2019 > resolve Hyperlipidemia Hypertension Sleep apnea cpap Surgical History History of arthroscopy rt shouler History of arthroscopy rt knee History of back surgery below L4 CAGE AND HARDWARE X 2. L4-S1 decompression and fusion 07/02/2020: Grade 2 view, William 2, ETT 7.5. No issues postop per anesthesia progress note. History of bilateral carpal tunnel release History of colonoscopy History of esophagogastroduodenoscopy (EGD) History of heart artery stent ANGELITA Douglass, +Stress - no [place], 2 stents - [place] [employer] XD, Both in LAD, follows with Dr. Guilherme Berrios History of left knee replacement History of repair of ACL lt History of tonsillectomy History of tooth extraction Hx of cardiac cath (~04/2023) ANGELITA Douglass, +Stress - no [place], 2 stents - [place] [employer] XD, Both in LAD, follows with Dr. Guilherme Berrios Hx of elbow surgery rt ulnar nerve Family History Other Coronary heart disease Hypertension Social History Smoking Status: Former smoker Tobacco Type: Smokeless Tobacco (Dip or Chew) Cigarettes Per Day: 1-2 cigs/day; Smoking End Date: Quit 50 years ago; Second Hand Exposure: No; Do You Dip or Chew Tobacco: Yes (Chews 1/3 can per day (advised)); Tobacco Cessation Education Requested by Patient: No Hx Alcohol Use: Yes Alcohol type: beer Hx Substance Use: No Preferred Language: Citizen Of [place] Communication Ability: Effective Kids Activities Coach Required: No Beliefs That Will Affect Care: None marital status: Current Living Situation: Spouse current occupational status: retired Other Information That Helps Us Care for You: No Feels Safe at Home: Yes Safety Concerns: Feels Safe At This Time Assistive Devices: Cane, CPAP, Glasses and Walker Physical Exam Physical Exam: Patient is alert and oriented Heart regular in rhythm Lungs clear Results & Data Results & Data Vital Signs (Past 12 Hours) Vital Signs Temp Pulse Resp BP Pulse Ox O2 Del Method 12/29/23 05:45 Room Air 12/29/23 05:45 36.7 C 77 20 153/83 H 97 Room Air
[2023-12-29] MEDS: BUPIVACAINE/EPINEPHRINE 0.5% MPF 1:200,000 30 ML VIAL ONE (08:13)
[2023-12-29] MEDS ORDERED: ePHEDrine sulfate 50 MG/5 ML SYR ONE (08:41)
[2023-12-29] MEDS: BUPIVACAINE 0.25% PF 30 ML VIAL ONE (08:42)
[2023-12-29] MEDS: ceFAZolin 330 MG/ML 1 GM VIAL ONE (08:43)
[2023-12-29] MEDS: EPINEPHrine INJ 1 MG/ML AMP ONE (08:44)
[2023-12-29] MEDS ORDERED: SUGAMMADEX SODIUM 200 MG/2 ML VIAL IV ONE (09:27)
[2023-12-29] MEDS: FLOSEAL HEMOSTATIC MATRIX 10ML TOP ONE (09:31)
[2023-12-29] MEDS ORDERED: PHENYLEPHRINE 100MCG/ML 10ML SYR IV ONE (09:34)
--- NOTE | 2023-12-29 09:40 | Operative Report ---
Post Operative Report Pre & Post Diagnosis Operation Date: 12/29/23 07:45 Pre-Op Diagnosis: Lumbar Stenosis with Neurogenic Claudication Post-Op Diagnosis: Lumbar Stenosis with Neurogenic Claudication I identified the patient and participated in the time-out.: Yes Procedure Operation Date: 12/29/23 07:45 Actual Procedures #1 removal of posterior instrumentation L3-L4. #2 exploration of fusion L3-L4. #3 lumbar decompression bilaterally facetectomies and foraminotomies L1-L2 L2- L3. #4 posterior spinal fusion L2-L3. #5 placed posterior instrumentation L2- L3. #6 interbody fusion L2-L3. #7 placement of spiral 13 x 26 mm cage at L2- L3. #8 placement locally harvested morselized graft and posterior gutters. #9 placement infuse collagen sponge, with Koros in the posterior gutters and course in the interbody space. Surgeon Sammy Joseph DO Sap Bi Architect Giuseppe Lezama Estimated Blood Loss 100 Findings Consistent with Post-Op Diagnosis Specimens None Indications This is a 68-year-old male well-known to me the presents above-mentioned diagnosis and failed course of nonoperative care is here for surgical invention. Description of Procedure Patient was met with identified informed consent obtained. Patient was then taken to the operative suite underwent patient placed in a prone position on the Luis Antonio table top the Graham frame. All bony promises well-padded eyes inspected to ensure no external precipice upon the. This point lumbar spine is prepped and draped in a sterile fashion. Sharp dissection with the assistance of Bovie cautery to form down to and exposing the lamina transverse processes of L2 and instrumentation at L3-L4 bilaterally. Then proceeded to move the hardware bilaterally explored the fusion mass noted to be mature and intact. Informed complete laminectomy of L2 partial laminectomy L1 including bilateral medial facetectomies and foraminotomies addressing severe spinal stenosis. Pedicle screws were then placed at L2-L3 bilaterally with assistance of fluoroscopy and appropriate size mirna placed. Bilateral transforaminal approach on the right complete discectomy of L2-L3 was performed endplates guarded to subcortical mean bone and a 13 x 26 mm spiral cage filled with Koros bone graft tapped in position. The rods then compressed locked in final position bilaterally. The transverse processes of L2-L3 burred to subcortical bleeding bone. Infuse collagen sponge, with Koros and local autograft placed in the posterior lateral gutters. 15 round drain drain inserted. The incision was then closed with 1 Vicryl and fascia 2-0 Vicryl subcutaneously and 4 Monocryl for final skin closure. Steri-Strips sterile dressing placed. Patient waken taken to PACU stable condition. Please note spinal cord monitoring visualized at the procedure no changes noted. Lastly Giuseppe Lezama was present at the entire surgeon with the patient positioning complex portion of the surgery and final skin closure. I attest to the content of the Intraoperative Record and any orders documented therein. Any exceptions are noted below.
--- NOTE | 2023-12-29 10:44 | Fluoroscopy Report ---
FL lumbar spine 2-3V CLINICAL HISTORY: HARDWARE REMOVAL DECOMP AND FUSION COMPARISON STUDY: 07/02/2020 FLUOROSCOPY TIME: 12.4 seconds FLUOROSCOPY IMAGES: 2 EXPOSURE DOSE: 10.13 mGy FINDINGS: Magnification of the images limits the study, therefore exact numbering cannot be verified. Images were submitted following completion of the surgery. No unexpected opaque foreign bodies are s een. Patient reportedly had hardware removal at L3-L4 with decompression and fusion at L3-L4. Additional d iscectomy changes are noted at L4-L5 and L5-S1. IMPRESSION: Fluoroscopic assistance as above. ACT 112: Negative or not required by law. Electronically signed by: Kedar Ryan M.D. 12/29/2023 10:43 AM
--- NOTE | 2023-12-29 10:47 | Anesthesiology Progress Note ---
Date of Service December 29, 2023 Anesthesia Post Procedure Vital Signs Vital Signs: Temp Pulse Pulse Resp BP Pulse Ox O2 Del Method 12/29/23 10:40 36.3 C L 79 13 132/76 97 Nasal Cannula 12/29/23 10:30 36.3 C L 73 16 145/83 H 98 Nasal Cannula 12/29/23 10:20 87 14 141/68 H 90 Nasal Cannula 12/29/23 10:10 82 13 131/64 99 Nasal Cannula 12/29/23 09:59 36.3 C L 74 16 154/71 H 97 Oxymask 12/29/23 05:45 Room Air 12/29/23 05:45 36.7 C 77 20 153/83 H 97 Room Air O2 Flow Rate 12/29/23 10:40 3 12/29/23 10:30 3 12/29/23 10:20 4 12/29/23 10:10 4 12/29/23 09:59 5 12/29/23 05:45 12/29/23 05:45 Transfer of Care Handoff Completed per policy Notes Mental Status: alert / awake / arousable and participated in evaluation Patient Amnestic to Procedure: Yes Nausea / Vomiting: adequately controlled Pain: adequately controlled Airway Patency, RR, SpO2: stable & adequate BP & HR: stable & adequate Hydration State: stable & adequate Anesthetic Complications: no major complications apparent and Pt Satisfied with anesthetic care
[2023-12-29] MEDS ORDERED: traMADol HCL 50 MG TABLET PO PRN (11:09)
[2023-12-29] MEDS ORDERED: HYDROmorphone INJ 0.5 MG/0.5 ML SYR IV PRN (11:09)
[2023-12-29] MEDS ORDERED: oxyCODONE HCL IR 5 MG TAB (IMMEDIATE RELEASE) PO PRN (11:09)
[2023-12-29] MEDS ORDERED: NALOXONE HCL 0.4 MG/1 ML VIAL/CARP IV PRN (11:09)
[2023-12-29] MEDS ORDERED: LORazepam 0.5 MG in SYRINGE 0.25 ML IV PRN (11:09)
[2023-12-29] MEDS ORDERED: DO NOT ADMINISTER PNEUMOCOCCAL VACCINE PRN (11:09)
[2023-12-29] MEDS ORDERED: MAGNESIUM HYDROXIDE SUSP 30 ML UDC PO PRN (11:09)
[2023-12-29] MEDS ORDERED: FAMOTIDINE 20 MG TAB PO PRN (11:09)
[2023-12-29] MEDS ORDERED: ONDANSETRON 4 MG OD TAB PO PRN (11:09)
[2023-12-29] MEDS ORDERED: ALUMINUM/MAGNESIUM SUSP 30 ML UDC PO PRN (11:09)
[2023-12-29] MEDS ORDERED: ACETAMINOPHEN 1,000 MG/100 ML VIAL IV PRN (11:09)
[2023-12-29] MEDS ORDERED: hydrOXYzine HCl 25 MG TAB PO PRN (11:09)
[2023-12-29] MEDS ORDERED: LORazepam 0.5 MG TAB PO PRN (11:09)
[2023-12-29] MEDS ORDERED: ACETAMINOPHEN 500 MG TAB PO PRN (11:09)
[2023-12-29] MEDS ORDERED: HYDROmorphone INJ 1 MG/ML SYRINGE IV PRN (11:09)
[2023-12-29] MEDS ORDERED: SOD PHOSPHATE/SOD BIPHOSPHATE ENEMA 132 ML BTL PR PRN (11:09)
[2023-12-29] MEDS ORDERED: METOCLOPRAMIDE HCL INJ 5 MG/ML 2 ML VIAL IV PRN (11:09)
[2023-12-29] MEDS ORDERED: PHARMACY GLYCEMIC MGMT CONSULT PRN (11:09)
[2023-12-29] MEDS ORDERED: diphenhydrAMINE Capsule 25 MG CAP PO PRN (11:09)
[2023-12-29] MEDS ORDERED: bisacodyL 10 MG SUPP PR PRN (11:09)
[2023-12-29] MEDS ORDERED: DO NOT ADMINISTER FLU VACCINE PRN (11:09)
[2023-12-29] MEDS ORDERED: PROMETHAZINE HCL 12.5 MG in SODIUM CHLORIDE 0.9% 50 ML IV PRN (11:09)
--- NOTE | 2023-12-29 11:15 | Hospitalist Consultation ---
Date of Consultation December 29, 2023 Assessment & Plan (1) Lumbar stenosis with neurogenic claudication: - POD #0 s/p Lumbar decompression fusion of L2-L4 by Dr. Joseph - Pain management, bowel regimen and DVT ppx per the primary team - PT/OT consults, pt is planning on outpatient therapy after discharge - Follow am CBC to monitor for acute blood loss - last Hgb of 16.6, Follow (2) Sleep apnea: - Cont cpap HS - may use home unit (3) Hypertension: (4) Hyperlipidemia: (5) CAD (coronary artery disease): - Held plavix for 7 d prior to surgical intervention, anticipate start this within 24 hrs after surgery pending clearance from surgery - hx of MILEY x 2 in April 2023 - Follows with cardiology as outpatient - Chronic, stable - Cont antihypertensive medications and statin (6) Diabetes mellitus, type 2: - ISS with accucheck achs per Glycemic pharmacy - Hold metformin and Jardiance for now - Check A1C with am labs (7) BPH (benign prostatic hyperplasia): - Cont flomax, chronic, stable DVT ppx:teds, scds FEN/GI: HH/DM diet Lines: 2 PIV CODE: FULL Dispo: From home, likely to remain in the hospital x 1-2 days Thank you for involving us in the care of Mr. Bowens. Please do not hesitate to call with questions or concerns. At this time medicine service will follow along. Supervising Physician Co-Signing Physician Notes Patient was seen and examined at bedside as a follow-up of medical management after lumbar decompression and fusion. Patient reports improvement in his BLE radicular symptoms. Operative site pain under control. On exam, lower back with clean dressing, CARMINE drain with moderate serosanguineous collection noted. Rest of the examination as above. Resume Plavix as soon as possible with clearance from surgery. I have seen and examined the patient and have discussed the case with the provider above. I agree with the assessment and plan as stated. History of Present Illness Reason for Consultation: Medical management Requesting Physician: Dr. Joseph Attending Physician: Sammy Joseph DO History of Present Illness This is a 68 yo M with PMHx of CAD, MILEY x 2 to LAD on 05/22/23, Chronic back pain, DDD, DM type 2, COVID-19, Hyperlipidemia, Hypertension, Sleep apnea on cpap who presented for elective lumbar decompression fusion by Dr. Joseph on 12/28/22. Patient states that he is doing well, his son and are present at bedside and supports the history. He states that prior to surgery he was having left buttocks down to his left foot numbness/tingling pain and feels that it is improved status post having surgery already. He is able to move his feet without difficulty. Tolerated clear liquid diet of chicken broth at bedside for lunch, no nausea, last bowel movement was yesterday. He has been holding Plavix for the last week due to surgery with his history of stents done last April. Patient states his glucose has been between 80 and 120, took half dose of Tresiba this morning, typically takes 136 units daily. Denies any lightheadedness or dizziness. Does not wear any oxygen at baseline however does use CPAP at night and brought his home unit with him. He anticipates using PT/OT as outpatient. Patient also admits to chewing tobacco pouches, goes through 1 can in 3 days, denies need for nicotine patch at this time. Allergies Allergy/AdvReac Type Severity Reaction Status Date / Time cephalexin Allergy Intermediate HIVES Verified 12/29/23 05:24 Home Medications Medication Instructions Recorded Confirmed Type cetirizine 10 mg tablet (Zyrtec) 10 mg PO QPM 06/15/20 12/29/23 History insulin degludec 100 unit/mL (3 135 unit subcut QAM 06/15/20 12/29/23 History mL) subcutaneous pen (Tresiba FlexTouch U-100 insulin) metformin 1,000 mg tablet 1,000 mg PO BID 06/15/20 12/29/23 History tadalafil 5 mg tablet (Cialis) 5 mg PO QAM 06/15/20 12/29/23 History tamsulosin 0.4 mg capsule 0.4 mg PO QPM 09/14/21 12/29/23 History aspirin 81 mg capsule 81 mg PO QPM 12/21/23 12/29/23 History atorvastatin 40 mg tablet 40 mg PO QPM 12/21/23 12/29/23 History cholecalciferol (vitamin D3) 125 5,000 unit PO QAM 12/21/23 12/29/23 History mcg (5,000 unit) tablet (Vitamin D3) clopidogrel 75 mg tablet 75 mg PO QAM 12/21/23 12/29/23 History docusate sodium 100 mg capsule 100 mg PO QAM 12/21/23 12/29/23 History (Colace) empagliflozin 25 mg tablet 25 mg PO QAM 12/21/23 12/29/23 History (Jardiance) losartan 100 mg tablet 100 mg PO QAM 12/21/23 12/29/23 History metoprolol succinate 25 mg 25 mg PO QPM 12/21/23 12/29/23 History tablet,extended release 24 hr vitamin A-vitamin C-vit E-min 1 tab PO QAM 12/21/23 12/29/23 History tablet vitamin X18-wbpanaios factor 110 1 cap PO QAM 12/21/23 12/29/23 History mg-0.5 mg capsule oxycodone 5 mg tablet 5 mg PO Q6H PRN pain #30 tabs 12/29/23 Rx tramadol 50 mg tablet 50 mg PO Q6H PRN pain, moderate 12/29/23 Rx #30 tabs Patient History Medical History (Updated 12/29/23 @ 11:18 by Bianca Echavarria PA-C) CAD (coronary artery disease) MILEY x 2 to LAD on 05/22/23 History of COVID-2019 > resolve Degenerative disc disease Chronic back pain BPH (benign prostatic hyperplasia) Diabetes mellitus, type 2 IDDM Hyperlipidemia Hypertension Sleep apnea cpap Surgical History History of heart artery stent Sam Douglass, +Stress - no PA, 2 stents - [employer] XD, Both in LAD, follows with Dr. Guilherme Berrios Hx of cardiac cath (~04/2023) S Evonne, +Stress - no PA, 2 stents - [employer] X[employer], Both in LAD, follows with Dr. Guilherme Berrios History of bilateral carpal tunnel release History of left knee replacement Hx of elbow surgery rt ulnar nerve History of arthroscopy rt knee History of arthroscopy rt shouler History of repair of ACL lt History of back surgery below L4 CAGE AND HARDWARE X 2. L4-S1 decompression and fusion 07/02/2020: Grade 2 view, William 2, ETT 7.5. No issues postop per anesthesia progress note. History of esophagogastroduodenoscopy (EGD) History of colonoscopy History of tooth extraction History of tonsillectomy Family History Other Coronary heart disease Hypertension Social History Smoking Status: Never smoker Tobacco Type: Smokeless Tobacco (Dip or Chew) Cigarettes Per Day: 1-2 cigs/day; Smoking End Date: Quit 50 years ago; Second Hand Exposure: No; Do You Dip or Chew Tobacco: Yes; Tobacco Cessation Education Requested by Patient: No Hx Alcohol Use: Yes Alcohol type: hard liquor Hx Substance Use: No Preferred Language: Beninese Communication Ability: Effective Temporary Administrative Assistant Required: No Beliefs That Will Affect Care: None marital status: Current Living Situation: Spouse current occupational status: retired Other Information That Helps Us Care for You: No Feels Safe at Home: Yes Safety Concerns: Feels Safe At This Time Assistive Devices: CPAP Review of Systems Review of Systems: Constitutional: No fever, sweats or chills Eyes: No diplopia, no worsening or blurred vision ENT: normal hearing, no trouble swallowing Respiratory: No cough, sputum, dyspnea at rest or on exertion Cardiovascular: No chest pain, tightness or palpitations Abdomen: No pain, nausea, vomiting, diarrhea or constipation Musculoskeletal: No joint pain, calf pain, swelling Neurologic: No weakness, numbness/tingling, or balance problems - as per HPI. Psychiatric: No anxiety or depression Skin: No rash or itch Physical Exam Physical Exam: General: awake, alert, no apparent distress, obese white male with BMI 31.2 Head: Normocephalic, atraumatic ENT: PERRL, EOMI, no pharyngeal exudate, mucous membranes moist Chest: Clear to auscultation, on room air, no adventitious breath sounds Cardiac: Regular rate and rhythm, no murmur, no JVD, normal peripheral pulses, good capillary refill Back: Dressing c/d/i, CARMINE drain in place with bloody outs. Abdominal: NABS x 4 quadrants, soft, nondistended, nontender to palpation, no rebound or guarding Extremities: Normal inspection, no peripheral edema or erythema, calfs nontender to palpation Psych: Normal mood and affect Neuro: AAO x 3, strength intact bilaterally and rated 5/5, no motor deficits, speech is clear, no peripheral sensory deficits Results & Data Results & Data Vital Signs (Past 12 Hours) Vital Signs Temp Pulse Pulse Resp BP Pulse Ox O2 Del Method 12/29/23 10:40 36.3 C L 79 13 132/76 97 Nasal Cannula 12/29/23 10:30 36.3 C L 73 16 145/83 H 98 Nasal Cannula 12/29/23 10:20 87 14 141/68 H 90 Nasal Cannula 12/29/23 10:10 82 13 131/64 99 Nasal Cannula 12/29/23 09:59 36.3 C L 74 16 154/71 H 97 Oxymask 12/29/23 05:45 Room Air 12/29/23 05:45 36.7 C 77 20 153/83 H 97 Room Air O2 Flow Rate 12/29/23 10:40 3 12/29/23 10:30 3 12/29/23 10:20 4 12/29/23 10:10 4 12/29/23 09:59 5 12/29/23 05:45 12/29/23 05:45 Laboratory Results 12/29/23 12/29/23 12/29/23 10:01 08:36 05:25 POC Glucose 171 H 145 H 188 H
[2023-12-29] MEDS: SODIUM CHLORIDE 0.9% 1,000 ML IV SCH (11:33)
[2023-12-29] MEDS ORDERED: CARBOHYDRATES FOR HYPOGLYCEMIA PO PRN (12:03)
[2023-12-29] MEDS ORDERED: DEXTROSE 50% 50 ML SYRINGE IV PRN (12:03)
[2023-12-29] MEDS ORDERED: GLUCOSE 40% GEL 15 GM TUBE PO PRN (12:03)
[2023-12-29] MEDS ORDERED: GLUCAGON FOR INJ 1 MG VIAL SQ PRN (12:03)
[2023-12-29] MEDS ORDERED: GLUCOSE 10 TAB/TUBE PO PRN (12:03)
[2023-12-29] MEDS: INSULIN ASPART PER UNIT CHARGE SC SCH (12:21)
[2023-12-29] MEDS: LANTUS PER UNIT CHARGE SC ONE (13:00)
--- NOTE | 2023-12-29 13:09 | Pharmacy Report ---
Pharmacy Glycemic Short Note 2 - Date of Service December 29, 2023 - Glycemic Short BSG Results (Last 24 hours): 12/29/23 12/29/23 12/29/23 05:25 08:36 10:01 POC Glucose 188 H 145 H 171 H 12/29/23 11:33 POC Glucose 181 H OUTPATIENT ANTIDIABETIC REGIMEN: * Tresiba 135 units, Metformin 1000 mg BID, Empagliflozin 25 mg daily * A1c pending ASSESSMENT: * Patient admitted post spinal surgery, received pre-op IV dexamethasone and ordered 6 mg IV daily ongoing * Post-op BSG 181 mg/dL. Patient took half his home lantus dose this morning (65 units), will give an additional 25 units x 1 now. * Will start with ~weight based stress of 3 novolog parameters, may need tightened with ongoing steroid use- monitor * Overnight checks for first night PLAN FOR INPATIENT GLYCEMIC CONTROL: * Hold outpatient oral diabetes medications * Basal insulin * Lantus 65 units at home this AM, 25 units x1 afternoon * Will reassess AM dose * Bolus insulin * NovoLog per scale ACHS or Q6hrs while NPO * Goal Range: Low 110 mg/dL - High 140 mg/dL * Correction Factor: 15 mg/dL/unit * Nutritional / Prandial insulin per carb ratio of 1 unit per 4 grams CHO consumed
--- OUTSIDE RECORDS SUMMARY | 2023-12-29 15:10 | External Medical Summary | Summary of Care ---
Author Name Unknown Organization [facility] Address [address] [place] [address] Phone [phone] Care Team Providers Care Superintendent Logging Name Role Phone Liam Tang MD Primary Care Provider [phone] Reason for Visit * Reason Onset Date Comments Advice 12/19/2023 Encounter Details Date Type Department Care Team (Late st Contact Info) Description 12/19/2023 Telephone Cardiology, [facility] [address] [place] [address] Vira Rangel CRNP [address] [phone] Advice Allergies Active Allergy Reactions Criticality Noted Date Comments Cephalexin Rash Medium 07/22/2013 Other reaction(s): Hives documented as of this encounter (statuses as of 12/20/2023) Medications Medication Sig Dispensed Refills Start Date End Date Status Tamsulosin HCl 0.4 MG Oral Capsule (Flomax) Take 1 Capsule by mouth in the morning. 0 02/03/2023 Active Tresiba FlexTouch 100 UNIT/ML Subcutaneous Solution Pen-injector 110 units in the monring 0 04/11/2023 Active metFORMIN HCl 1000 MG Oral Tablet (Glucophage) Take 1 Tablet by mouth in the morning and 1 Tablet before bedtime. 0 02/02/2023 Active Jardiance 25 MG Oral Tablet 1 Tablet in the morning. 0 04/11/2023 Active Losartan Potassium-HCTZ 100-12.5 MG Oral Tablet Take 1 Tablet by mouth in the morning. 0 04/20/2023 Active Tadalafil 5 MG Oral Tablet (Cialis) Take by mouth daily as needed. 0 03/10/2023 Active ZyrTEC Allergy 10 MG Oral Capsule (Cetirizine HCl) Take 1 Capsule by mouth in the morning. 0 03/10/2023 Active Ocuvite Adult Formula Oral Capsule Take 1 Tablet by mouth in the morning. 0 03/10/2023 Active Precision QID Test In Vitro Strip (Glucose Blood) testing twice daily ACCUCHECK MELITA PLUS 0 01/25/2023 Active Atorvastatin Calcium 40 MG Oral Tablet (Lipitor) Take 1 Tablet by mouth in the morning. 90 Tablet 3 05/12/2023 Active Aspirin 81 MG Oral Tablet Chewable Take 1 Tablet by mouth in the morning. 100 Tablet 3 05/22/2023 Active Clopidogrel Bisulfate 75 MG Oral Tablet (pLAVix) Take 1 Tablet by mouth in the morning. 100 Tablet 3 05/22/2023 Active Metoprolol Succinate ER 25 MG Oral Tablet Extended Release 24 Hour (toPROL XL) Take 1 Tablet by mouth every night at bedtime. 90 Tablet 3 07/28/2023 Active documented as of this encounter (statuses as of 12/20/2023) Active Problems Problem Noted Date Diagnosed Date Hypertriglyceridemia 07/28/2023 S/P primary angioplasty with coronary stent 04/24 Coronary artery disease invo lving [place] coronary artery of [place] heart without angina pectoris 05/22/2023 DM type 2 with diabetic peripheral neuropathy Dyslipidemia 05/23/2013 Hypertension, benign 05/23/2013 documented as of this encounter (statuses as of 12/20/2023) Social History Tobacco Use Types Packs/Day Years Used Date Smoking Tobacco: Never Assessed Sex and Gender Information Value Date Recorded Sex Assigned at Not on file Gender Identity Not on file Sexual Orientation Not on file Job Start Date Occupation Industry Not on file Not on file Not on file documented as of this encounter Miscellaneous Notes * Telephone Encounter - Shari Palomo MED ASSIST - 12/20/2023 10:07 AM EST Faxed all information to the [place] [phone]. Shari Palomo NRCMA * Telephone Encounter - Vira Rangel CRNP - 12/20/2023 8:11 AM EST Phoned Mr. Bowens this morning. Patient has had no change in condition since I saw him in July. He states that actually as more time goes by he feels even better since PCI. He does not endorse chest pain, use of SL nitro shortness of breath, edema. He has had no untoward bleeding. Functional capacity is less than 4 Mets but this is felt to be secondary to his lumbar stenosis/radiculopathy. He is scheduled for hardware removal, decompression instrumented fusion with possible reinstate mentation at the L2-L4 level on December 29, 2023. By RCRI, Mr. Bowens estimated risk of adverse outcome with noncardiac surgery is moderate. Given recent revascularization and absence of symptoms suggestiveof ischemia, arrhythmia, heart failure, no further risk stratification is recommended. Patient may proceed with the elective orthopedic spine surgery. Patient may hold Plavix 7 days prior to procedure date. Patient should restart Plavix postprocedure when hemodynamically safe to do so and at the direction the performing provider. Patient will keep his upcoming appointment with Cardiology as scheduled for April, sooner should the need arise. * Telephone Encounter - Shari Palomo MED ASSIST - 12/19/2023 11:01 AM EST Spoke with Ally in Dr. Sammy Joseph's office. Patient having spine surgery on 12/29/23. They would like to know if the patient can stop his Plavix 7 days prior to the surgery. They are faxing over the office visit from today. Patient would need to stop on Monday, they will need something in writing faxed to them that he is able to stop it. Can fax the letter to [phone]. Shari HORTONMaria * Telephone Encounter - Violet Hernandez OSA - 12/19/2023 10:55 AM EST Person calling: Valencia from Dr. Sammy Joseph Orthopedics Department Relationship to patient: n/a Number to return call: [phone] Reason for call: Valencia is requesting to speak with nurse. Pt will be having surgery on 12/29/2023 and Valencia would like to know if patient should stop taking Plavix. Pharmacy: n/a Provider Name: Vira ROB documented in this encounter Plan of Treatment Upcoming Encounters Date Type Department Care Team (Late st Contact Info) Description 04/23/2024 3:00 PM EDT Office Visit Cardiology, [facility] [address] [place] [address] Vira Rangel CRNP [address] [place] [address] Health Maintenance Due Date Last Done Comments Depression Screening 1967 Diabetic Eye Exam 1973 Diabetic Foot Exam 1973 Hepatitis C Screening 1973 DTaP,Tdap,and Td Vaccines (1 - Tdap) 1974 Colonoscopy 2000 Fecal Occult Blood Test 2000 Sigmoidoscopy 2000 Zoster Vaccines (1 of 2) 2005 Pneumococcal Vaccine: 65+ Years (2 of 2 - PCV) 11/25/2010 11/25/2009 COVID-19 Vaccine ( - 2022- season) 2023 10/05/2021, 02/14/2021, 01/21/2021, Additional history exists Influenza Vaccine (FLU shot) (#1) 2023 08/29/2022, 08/24/2021, 08/23/2016, Additional history exists HbA1c 03/01/2024 09/01/2023, 02/0 03/2023, 08/23/2022, Additional history exists Albumin/Creatinine Ratio 09/01/2024 09/01/2023 GFR 09/01/2024 09/01/2023, 07/2 01/2023, 11/28/2022, Additional history exists Cologuard 04/16/2026 04/16/2023, 04/05/2023 Colorectal Cancer Screening 04/16/2026 GARDASIL-HPV IMMUNIZATION SERIES Aged Out No longer eligible based on patient's age to complete this topic Hepatitis B Aged Out No longer eligi ble based on patient's age to complete this topic MENINGOCOCCAL (MENACTRA/MENVEO) Aged Out No longer eligible based on patient's age to complete this topic documented as of this encounter Medical Devices Implanted Type Area Mercerizing Range Controller Device Identifier Shelf Expiration Date Model / Serial / Lot Stent Synergy Xd Mr [id number] - [id number] Implanted:Qty: 1 on 05/22/2023 by Ted Garrett MD at [facility] [employer] [id number] 05/05/2024 [id number] / / [id number] Stent Synergy Xd Mr [id number] - [id number] Implanted:Qty: 1 on 05/22/2023 by Ted Garrett MD at [facility] [employer] [id number] 07/19/2024 [id number] 270 / / [id number] documented as of this encounter Care Teams Superintendent Logging Relationship Specialty Start Date End Date Liam Tang MD [address] [place] [address] PCP - General Family Medicine 05/03/23 documented as of this encounter
[2023-12-29] MEDS ORDERED: INSULIN ASPART PER UNIT CHARGE SC SCH (16:30)
[2023-12-29] MEDS: CLINDAMYCIN/D5W 600 MG/50 ML BAG IV SCH (16:48)
[2023-12-29] MEDS: TAMSULOSIN HCL 0.4 MG CAP PO SCH (20:42)
[2023-12-29] MEDS: CETIRIZINE HCL 10 MG TABLET PO SCH (20:42)
[2023-12-29] MEDS: ASPIRIN 81 MG ECTAB PO SCH (20:42)
[2023-12-29] MEDS: ATORVASTATIN 40 MG TAB PO SCH (20:43)
[2023-12-29] MEDS: DOCUSATE SODIUM/SENNA 50/8.6MG TAB PO SCH (20:43)
[2023-12-29] MEDS: METOPROLOL SUCC 25MG EXT REL TAB PO SCH (20:43)
[2023-12-30] MEDS: INSULIN ASPART PER UNIT CHARGE SC SCH (00:18)
[2023-12-30] MEDS: POLYETHYLENE (MIRALAX) 17 GM PACK PO SCH (04:39)
[2023-12-30 06:26] LABS: Basophils # (auto) 0.04 K/uL (0.00-0.20); Basophils % (auto) 0.3 %; Immature Granulocytes # (auto) 0.12 K/uL (0.01-0.20); Immature Granulocytes % (auto) 0.8 %; Lymphocytes % (auto) 7.7 %; Mean Corpuscular Hemoglobin 29.9 pg (25.0-34.0); Mean Corpuscular Hgb Conc 34.2 g/dL (32.0-36.0); Mean Corpuscular Volume 87.4 fL (80.0-100.0); Mean Platelet Volume 10.2 fL (9.4-12.4); Monocytes # (auto) 0.95 K/uL (0.11-0.59); Monocytes % (auto) 6.6 %; Neutrophils # (auto) 12.09 K/uL (1.40-6.50); Neutrophils % (auto) 84.6 %; Platelet Count 160 K/uL (130-400); RDW Coefficient of Variation 13.9 % (11.5-14.5); RDW Standard Deviation 44.2 fL (36.4-46.3); Red Blood Count 4.35 M/uL (4.70-6.10)
[2023-12-30 06:38] LABS: BUN Creatinine Ratio 33.8 (10-20); Calcium 8.8 mg/dl (8.6-10.3); Creatinine Clr Calc Pharmacy 117.2 ml/min; Est GFR (African American) 111.7 ml/min; Est GFR (Non-African American) 96.4 ml/min; Potassium 4.6 mmol/L (3.5-5.1)
[2023-12-30 07:17] LABS: Estimated Average Glucose 160 mg/dl; Hemoglobin A1C 7.2 % (4.5-5.6)
[2023-12-30] MEDS: LANTUS PER UNIT CHARGE SC SCH ×2 (08:25→20:51)
[2023-12-30] MEDS: CYANOCOBALAMIN (B-12) 100 MCG TABLET PO SCH (08:28)
[2023-12-30] MEDS: LOSARTAN POTASSIUM 50 MG TAB PO SCH (08:29)
[2023-12-30] MEDS: CHOLECALCIFEROL 125 MCG (5,000 UNITS) TAB PO SCH (08:29)
[2023-12-30] MEDS: dexAMETHasone 6 MG in SYRINGE 0 ML IV SCH (08:29)
[2023-12-30] MEDS ORDERED: NON-FORMULARY MEDICATION (Vitamin A-Vitamin C-Vit E-Min Tablet) PO SCH (09:00)
[2023-12-30] MEDS ORDERED: EMPAGLIFLOZIN 25 MG TAB PO SCH (09:00)
[2023-12-30] MEDS ORDERED: CYANOCOBALAMIN (B-12) 100 MCG TABLET PO SCH (09:00)
--- NOTE | 2023-12-30 10:11 | Orthopedic Progress Note ---
Date of Service December 30, 2023 Assessment & Plan (1) Lumbar stenosis with neurogenic claudication: Plan: This time continue physical therapy monitor his CARMINE operatively discharge home the next few days. Admission and Anticipated Discharge Date Admission Date: December 29, 2023 Subjective Back pain controlled leg pain improved Physical Exam Physical Exam: Patient is in the chair at the bedside. Appears distracted testing. Results & Data Vital Signs (Past 12 Hours) Vital Signs Temp Pulse Resp BP Pulse Ox O2 Del Method 12/30/23 03:13 36.4 C L 78 18 136/73 97 Room Air, CPAP 12/29/23 23:26 36.5 C 86 18 157/78 H 96 Room Air, CPAP
--- NOTE | 2023-12-30 13:48 | Pharmacy Report ---
Pharmacy Glycemic Short Note 2 - Date of Service December 30, 2023 - Glycemic Short BSG Results (Last 24 hours): 12/29/23 12/29/23 12/30/23 16:36 20:28 00:14 Glucose POC Glucose 204 H 279 H 226 H 12/30/23 12/30/23 12/30/23 04:32 05:22 07:38 Glucose 232 H POC Glucose 207 H 214 H 12/30/23 11:42 Glucose POC Glucose 271 H OUTPATIENT ANTIDIABETIC REGIMEN: * Tresiba 135 units SC Daily * Metformin 1000 mg BID * Empagliflozin 25 mg daily * HbA1c: 7.2% (12/30/23) ASSESSMENT: 12/29: * Tyrone received 137 units of insulin yesterday, 90 basal + 47 bolus. BSGs were: [phone] mg/dL. * Fasting BSG elevated at 214 mg/dL this AM. Increased AM basal to 100 units. Will add an HS dose to stress home dosing given steroid use. * Remains on Dexamethasone 6 mg IV daily and tolerating a T2DM diet. * Bolus was tightened both at breakfast and lunch today. 12/28: * Patient admitted post spinal surgery, received pre-op IV dexamethasone and ordered 6 mg IV daily ongoing * Post-op BSG 181 mg/dL. Patient took half his home lantus dose this morning (65 units), will give an additional 25 units x 1 now. * Will start with ~weight based stress of 3 novolog parameters, may need tightened with ongoing steroid use- monitor * Overnight checks for first night PLAN FOR INPATIENT GLYCEMIC CONTROL: * Hold outpatient oral diabetes medications * Basal insulin * Lantus 100 units SC AM * Lantus 50-60 units SC PM (see eMAR for more details) * Bolus insulin * NovoLog per scale ACHS or Q6hrs while NPO * Goal Range: Low 110 mg/dL - High 140 mg/dL * Correction Factor: 10 mg/dL/unit * Nutritional / Prandial insulin per carb ratio of 1 unit per 3 grams CHO consumed
--- NOTE | 2023-12-30 13:54 | Hospitalist Progress Note ---
Date of Service December 30, 2023 Assessment & Plan (1) Lumbar stenosis with neurogenic claudication: Plan: - POD #1 s/p Lumbar decompression fusion of L2-L4 by Dr. Joseph - Pain management, bowel regimen and DVT ppx per the primary team - PT/OT consults, pt is planning on outpatient therapy after discharge - Follow am CBC to monitor for acute blood loss - last Hgb of 16.6, Follow Acute blood loss anemia: Likely perioperative and dilutional component related. Preop hemoglobin 16.6, postop hemoglobin 13.0. Patient with no lightheadedness or dizziness or chest pain or palpitation. No indication for blood transfusion. Monitor H&H as needed. (2) Sleep apnea: Plan: - Cont cpap HS - may use home unit (3) Hypertension: (4) Hyperlipidemia: (5) CAD (coronary artery disease): Plan: - Held plavix for 7 d prior to surgical intervention, resume as soon as possible after Sx clearance - hx of MILEY x 2 in April 2023 - Follows with cardiology as outpatient - Chronic, stable - Cont antihypertensive medications and statin (6) Diabetes mellitus, type 2: Plan: - ISS with accucheck achs per [facility] pharmacy - Hold metformin and Jardiance for now (7) BPH (benign prostatic hyperplasia): Plan: - Cont flomax, chronic, stable DVT ppx:teds, scds CODE: FULL Dispo: Possible dc in next few days. Admission and Anticipated Discharge Date Admission Date: December 29, 2023 Subjective Patient was seen and examined at bedside. Patient was lying in bed, on room air, NAD, resting comfortably. Patient reports eating okay, moving gas, has not moved bowels yet. Patient reports improvement in her BLE radicular symptoms and is very happy with the surgery. Physical Exam Physical Exam: General: awake, alert, no apparent distress, obese white male with BMI 31.2 Head: Normocephalic, atraumatic ENT: PERRL, EOMI, no pharyngeal exudate, mucous membranes moist Chest: Clear to auscultation, on room air, no adventitious breath sounds Cardiac: Regular rate and rhythm, no murmur, no JVD, normal peripheral pulses, good capillary refill Back: Dressing c/d/i, CARMINE drain in place with minimal serosanguineous output. Abdominal: NABS x 4 quadrants, soft, nondistended, nontender to palpation, no rebound or guarding Extremities: Normal inspection, no peripheral edema or erythema, calfs nontender to palpation Psych: Normal mood and affect Neuro: AAO x 3, strength intact bilaterally and rated 5/5, no motor deficits, speech is clear, no peripheral sensory deficits Results & Data Results & Data Vital Signs (Past 12 Hours) Vital Signs Temp Pulse Resp BP Pulse Ox O2 Del Method 12/30/23 03:13 36.4 C L 78 18 136/73 97 Room Air, CPAP
[2023-12-31] MEDS: INSULIN ASPART PER UNIT CHARGE SC SCH (00:25)
[2023-12-31 06:21] LABS: Hematocrit (blood only) 37.2 % (42.0-52.0); Hemoglobin 13.1 g/dl (14.0-18.0); Mean Corpuscular Hemoglobin 30.2 pg (25.0-34.0); Mean Corpuscular Hgb Conc 35.2 g/dL (32.0-36.0); Mean Corpuscular Volume 85.7 fL (80.0-100.0); Mean Platelet Volume 10.3 fL (9.4-12.4); Platelet Count 157 K/uL (130-400); RDW Coefficient of Variation 13.9 % (11.5-14.5); RDW Standard Deviation 43.3 fL (36.4-46.3); Red Blood Count 4.34 M/uL (4.70-6.10); White Blood Count 11.81 K/ul (4.8-10.8)
--- NOTE | 2023-12-31 10:59 | Discharge Summary ---
Date of Service December 31, 2023 Admission HPI Per Admitting Provider 60-year-old male presents with chronic persistent back and leg pain after failing course of nonoperative care is here for surgical invention. Principal Diagnosis Lumbar spinal stenosis with neurogenic claudication Discharge Data Allergies Allergy/AdvReac Type Severity Reaction Status Date / Time cephalexin Allergy Intermediate HIVES Verified 12/29/23 05:24 Consultations 12/29/23 11:09 Consult Hospitalist Routine Procedures Performed Operation Date: 12/29/23 07:45 Actual Procedures p Hardware Removal L3-L4, Decompression and Fusion L2-L3, Re-Instrumentation L3- L4 with Spinal Cord Monitoring(Not Applicable) - Sammy Joseph DO Ordered Studies 12/29/23 07:45 [place] lumbar spine 2-3V Routine Hospital Course (1) Lumbar stenosis with neurogenic claudication: Patient will limiting motion fusion tolerated [facility] for postoperative. Postoperatively he was up and ambulating appropriately. Exercise to testing. CARMINE drain decreasing nicely and subsequent discharge home. Discharge orders instructions found in chart for further review. Total Time Total Time Spent Total Time Spent (In Minutes): 20 minutes Discharge Plan Discharge Items Patient Disposition: Home - Self-Care Reason For Visit: Lumbar Stenosis with Neurogenic Claudication Discharge Diagnosis: Lumbar spinal stenosis with neurogenic claudication Activity: As commented below Non-emergency contact: Primary Care Provider Call non-emergency contact if: you have any medication questions Follow-up/Referrals: Liam Tang MD [Primary Care Provider] - Diet: Regular Addtl Attending Provider Instructions: ACTIVITY RECOMMENDATIONS: SELF CARE INSTRUCTIONS AFTER THORACIC/LUMBAR FUSIONS 1. You may walk to your tolerance. It is good exercise for your legs and back. Expect some back and intermittent leg aches and pains. 2. You may perform "counter-top" level activities (make a sandwich, gavi with a project, etc.). 3. No bending or lifting of more than 10 pounds or back twisting of any nature (roll like a log when turning in bed). 4. You may ride in a car for 20-30 minutes at a time. No driving until after your first visit with your doctor. 5. Frequent changes of position and restricting sitting to 30 minutes at a time will help limit the amount of back spasms and stiffness you may experience. 6. You may discontinue the use of ambulatory aids (cane, crutches, etc.) once your strength and confidence allow. 7. You may business development executive the shower and let water strike your incision when you arrive home at least once daily. Do not take a tub bath, sit in a hot tub or go into a swimming pool until after your first recheck in the office. SPECIAL CARE INSTRUCTIONS: VERY IMPORTANT TO READ AND REVIEW A. Your surgical incision has been closed with a cosmetic suture under the skin that will dissolve in about 6 weeks. In 14 days, you can use a pair of clean scissors and cut the suture that is left outside of the skin at the ends of your incision. 1. The small skin tapes can be removed 7 days after surgery if they have not fallen off by that point. 2. You may keep the wound open to air as much as possible to promote healing after post-op day number 5 unless told otherwise by your doctor. 3. If you think the wound looks like it is becoming infected (redness or worsening drainage) and/or you are experiencing fever, chill or worsening back pain and muscle spasms, contact the office so that we may evaluate you as soon as possible. B. Complications are uncommon, but please contact us if you have any signs or symptoms of: 1. wound infection (fever higher than 102.5 degrees F, redness, separation of wound, drainage, or increasing pain from the incision) 2. blood clots in legs (pain, swelling, redness and warmth in legs) 3. urinary tract infection (fever higher than 102.5 degrees F, burning upon urination or increased frequency of urination) 4. nerve problems (inability to walk on your toes or heels, numbness, loss of bowel or bladder control) 5. any other symptoms that concern you C. Please call the office at if you have any concerns or questions about your operation or recovery. D. No smoking! Smoking drastically decreases the chance of a solid fusion. E. Do not take any anti-inflammatory medications (Indocin, Advil, Motrin, Aspirin, Naprosyn, etc.) as these may inhibit the chance of a solid fusion. Tylenol is okay to take for pain. MANAGING PAIN AFTER SPINAL SURGERY 1. Narcotic medication is intended for short-term use and will be provided for surgical pain. Surgical pain usually lasts for a period of 4-6 weeks. Narcotic medication includes Percocet, Vicodin, Darvocet, Tylenol #3 or Lortab. 2. Longer-term pain is more appropriately treated with non-narcotic medication such as Tylenol ES. 3. Muscle spasm is not appropriately treated with narcotics. Muscle relaxers such as Soma, Flexeril or Skelaxin can be used along with Tylenol ES. 4. Remember that we all live with some "aches and pains". This is not unusual or uncommon after an injury or as we get older. a. Back pain is expected and may include muscle spasms for 4 to 6 weeks after surgery. The pain should gradually improve. If the pain worsens for no apparent reason, please contact the office. b. Intermittent leg pain may also be experienced and should not be concerned about unless it worsens for no apparent reason. If so, please contact the office. 5. We will provide appropriate medication within the normal guidelines of their prescribed use. We will also be very cautious and aware of potential abuse and extended duration of patients' medication needs. a. Pain medications are for your comfort and to assist with sleep and rest so that the tissue can heal. They are not provided in order to return to normal activity and should not be used through the day. To do so or worsening pain at night can result from ongoing tissue damage and development of tolerance to the prescribed medicine. 6. Please allow 2-3 days to process refills. Prescriptions will not be mailed but must be picked up at the office. FOLLOW UP VISIT: Keep your scheduled follow-up appointment. Any questions, please call the office at . Pending Studies at Discharge: No Stand-Alone Forms: [facility], Smoking Cessation Medications and DC Order Prescriptions: New tramadol 50 mg tablet 50 mg PO Q6H PRN (Reason: pain, moderate) Qty: 30 0RF oxycodone 5 mg tablet 5 mg PO Q6H PRN (Reason: pain) Qty: 30 0RF Continued cetirizine [Zyrtec] 10 mg Tablet 10 mg PO QPM metformin 1,000 mg Tablet 1,000 mg PO BID tadalafil [Cialis] 5 mg Tablet 5 mg PO QAM insulin degludec [Tresiba FlexTouch U-100] 100 unit/mL (3 mL) Insulin Pen 135 unit SUBCUT QAM Rx Instructions: took 65 units this morning tamsulosin 0.4 mg Capsule 0.4 mg PO QPM atorvastatin 40 mg Tablet 40 mg PO QPM clopidogrel 75 mg Tablet 75 mg PO QAM docusate sodium [Colace] 100 mg Capsule 100 mg PO QAM metoprolol succinate 25 mg Tablet Extended Release 24 Hr 25 mg PO QPM losartan 100 mg Tablet 100 mg PO QAM vitamin A-vitamin C-vit E-min Tablet 1 tab PO QAM vitamin [id number] factor 110-0.5 mg Capsule 1 cap PO QAM cholecalciferol (vitamin D3) [Vitamin D3] 125 mcg (5,000 unit) Tablet 5,000 unit PO QAM Jardiance 25 mg Tablet 25 mg PO QAM aspirin 81 mg Capsule 81 mg PO QPM Discharge Orders: Discharge Order (Routine); Ordered 12/31/23 Ordered By: Sammy Joseph Admission Data Admit Date/Time: 12/29/23 09:43 Attending Provider: Sammy Joseph Admit Provider: Sammy Joseph Primary Care Provider: Liam Tang Other Providers: Komal Yang
--- NOTE | 2023-12-31 12:04 | Hospitalist Progress Note ---
Date of Service December 31, 2023 Assessment & Plan (1) Lumbar stenosis with neurogenic claudication: Plan: - POD #2 s/p Lumbar decompression fusion of L2-L4 by Dr. Joseph - Pain management, bowel regimen and DVT ppx per the primary team - PT/OT consults, pt is planning on outpatient therapy after discharge - Follow am CBC to monitor for acute blood loss - last Hgb of 16.6, Follow Acute blood loss anemia: Likely perioperative and dilutional component related. Preop hemoglobin 16.6, postop hemoglobin 13.0. Patient with no lightheadedness or dizziness or chest pain or palpitation. No indication for blood transfusion. Monitor H&H as needed. (2) Sleep apnea: Plan: - Cont cpap HS - may use home unit (3) Hypertension: (4) Hyperlipidemia: (5) CAD (coronary artery disease): Plan: - Held plavix for 7 d prior to surgical intervention, resume as soon as possible after Sx clearance - hx of MILEY x 2 in April 2023 - Follows with cardiology as outpatient - Chronic, stable - Cont antihypertensive medications and statin (6) Diabetes mellitus, type 2: Plan: - ISS with accucheck achs per Glycemic pharmacy - Hold metformin and Jardiance for now (7) BPH (benign prostatic hyperplasia): Plan: - Cont flomax, chronic, stable DVT ppx:teds, scds CODE: FULL Dispo: per primary Admission and Anticipated Discharge Date Admission Date: December 29, 2023 Subjective Patient was seen and examined at bedside. Patient was sitting up in chair, on room air, NAD, resting comfortably. Patient reports eating okay, moving bowels ok Patient reports improvement in his BLE radicular symptoms and is very happy with the surgery. Physical Exam Physical Exam: General: awake, alert, no apparent distress, obese white male with BMI 31.2 Head: Normocephalic, atraumatic ENT: PERRL, EOMI, no pharyngeal exudate, mucous membranes moist Chest: Clear to auscultation, on room air, no adventitious breath sounds Cardiac: Regular rate and rhythm, no murmur, no JVD, normal peripheral pulses, good capillary refill Back: Dressing c/d/i, CARMINE drain in place with minimal serosanguineous output. Abdominal: NABS x 4 quadrants, soft, nondistended, nontender to palpation, no rebound or guarding Extremities: Normal inspection, no peripheral edema or erythema, calfs nontender to palpation Psych: Normal mood and affect Neuro: AAO x 3, strength intact bilaterally and rated 5/5, no motor deficits, speech is clear, no peripheral sensory deficits Results & Data Results & Data Vital Signs (Past 12 Hours) Vital Signs Temp Pulse Resp BP Pulse Ox O2 Del Method 12/31/23 07:32 36.6 C 74 18 146/72 H 96 Room Air
== END 2023-12-31 13:30 | disposition home or self-care (01) | DRG 454 ==
LOC: ASU 05:03 → 3E 09:43